=== PATIENT | female | born 1985 | race Caucasian/White ===

== ENCOUNTER 2017-04-18 05:58 | Emergency (ER) | payer OTHER ==
[2017-04-18] MEDS ORDERED: Metoclopramide IV* 5 MG/ML 2 ML VIAL IV ONE (06:27)
[2017-04-18] MEDS ORDERED: NS 0.9% 1000 ML* 1,000 ML IV ONE (06:27)
--- NOTE | 2017-04-18 06:46 | ED ---
Jovany Vicente Benjamin, scribed for Thai West MD on 04/18/17 at 0628 . Abdominal Pain/Female - HPI Summary HPI Summary: 31yo female BIBA for abdominal pain, nausea, and vomiting. Pt started vomiting for 3 days, which pt took 6 zofrans since onset of nausea and vomiting. Pt also has diffuse abdominal pain that has been worsening. Also reports CP. Pts last PCP visit was 04/02. Pt reports having similar symptoms months ago. - History of Current Complaint Chief Complaint: EDNauseaVomitDiarrh Stated Complaint: NAUSEA/VOMITING Time Seen by Provider: 04/18/17 06:18 Hx Obtained From: Patient Hx Last Menstrual Period: 2 months ago Onset/Duration: Sudden Onset, Lasting Days - 3 days, Still Present Timing: Intermittent Episode Lasting Severity Initially: Mild Severity Currently: Severe Pain Intensity: 10 Pain Scale Used: 0-10 Numeric Location: Diffuse Radiates: No Aggravating Factor(s): Nothing Alleviating Factor(s): Nothing Associated Signs and Symptoms: Positive: Chest Pain, Nausea, Vomiting Allergies/Adverse Reactions: Allergies Allergy/AdvReac Type Severity Reaction Status Date / Time Shellfish Allergy Allergy Intermediate Swelling Verified 10/08/16 10:06 Of Face,Lips,& Throat Latex Allergy Mild Rash Verified 10/08/16 10:06 PMH/Surg Hx/FS Hx/Imm Hx Endocrine/Hematology History: Reports: Hx Thyroid Disease - She is not on medications for this because she does not like the feel. Denies: Hx Anticoagulant Therapy, Hx Blood Disorders, Hx Diabetes Cardiovascular History: Denies: Hx Congestive Heart Failure, Hx Deep Vein Thrombosis, Hx Hypertension , Hx Myocardial Infarction, Hx Pacemaker/ICD Respiratory History: Reports: Hx Asthma, Other Respiratory Problems/Disorders - Hx LT LUNG COLLAPSE/FLUID Denies: Hx Chronic Obstructive Pulmonary Disease (COPD), Hx Lung Cancer, Hx Pneumonia, Hx Pulmonary Embolism GI History: Reports: Hx Crohn's Disease, Hx Gastroesophageal Reflux Disease, Other GI Disorders - GERD Denies: Hx Gall Bladder Disease, Hx Gastrointestinal Bleed, Hx Ulcer, Hx Urosepsis History: Reports: Hx Kidney Stones, Hx Renal Disease - STONES Musculoskeletal History: Reports: Other Musculoskeletal History - CHRONIC BACK PAIN,SCOLOSIS BORN W/L3-S1 FUSION Sensory History: Reports: Hx Contacts or Glasses Denies: Hx Hearing Aid Opthamlomology History: Reports: Hx Contacts or Glasses Neurological History: Reports: Hx Headaches, Hx Migraine Denies: Hx Dementia, Hx Seizures, Hx Transient Ischemic Attacks (TIA) Psychiatric History: Reports: Hx Anxiety, 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 extra congenital breast removed. removal of cervical cancer 6 year. lumbar fusion (FOR SCOLIOSIS). collapsed lung 2013 Hx Anesthesia Reactions: No Infectious Disease History: Yes Infectious Disease History: Reports: Hx Hepatitis, Hx of Known/Suspected MRSA Denies: Hx Clostridium Difficile, Hx Human Immunodeficiency Virus (HIV), Hx Shingles, Hx Tuberculosis, Traveled Outside the [place] in Last 30 Days - Family History Known Family History: Positive: None, Diabetes, Other - She grew up in foster care--has limited information regarding her fmhx Negative: Cardiac Disease, Hypertension - Social History Occupation: Unemployed Lives: Alone Alcohol Use: None Alcohol Amount: sober since 01/19/14 Hx Substance Use: No Substance Use Type: Reports: None Substance Use Comment - Amount & Last Used: not since october Hx Tobacco Use: Yes Smoking Status (MU): Current Every Day Smoker Type: Cigarettes Amount Used/How Often: 1/2 PPD Length of Time of Smoking/Using Tobacco: 15 years Have You Smoked in the Last Year: Yes Review of Systems Constitutional: Negative Eyes: Negative ENT: Negative Positive: Chest Pain Respiratory: Negative Positive: Abdominal Pain, Vomiting, Nausea. Negative: Diarrhea Genitourinary: Negative Musculoskeletal: Negative Skin: Negative Neurological: Negative Psychological: Normal All Other Systems Reviewed And Are Negative: Yes Physical Exam Triage Information Reviewed: Yes Vital Signs On Initial Exam: Initial Vitals Temp Pulse Resp BP Pulse Ox 98.6 F 59 20 138/79 98 04/18/17 06:02 04/18/17 06:02 04/18/17 06:02 04/18/17 06:02 04/18/17 06:02 Vital Signs Reviewed: Yes Appearance: Positive: Well-Appearing, Pain Distress - mild discomfort Skin: Positive: Warm Head/Face: Positive: Normal Head/Face Inspection Eyes: Positive: [place] ENT: Positive: Hearing grossly normal Neck: Positive: Supple Respiratory/Lung Sounds: Positive: Breath Sounds Present Cardiovascular: Positive: Normal Abdomen Description: Positive: Soft, Other: - mild diffuse abd tenderness. Negative: Distended, Guarding Bowel Sounds: Positive: Present Musculoskeletal: Positive: Strength/ROM Intact Neurological: Positive: Alert, Oriented to Person Place, Time Psychiatric: Positive: Affect/Mood Appropriate - [place] Coma Scale Coma Scale Total: 15 Diagnostics - Vital Signs Vital Signs Temp Pulse Resp BP Pulse Ox 04/18/17 06:02 98.6 F 59 20 138/79 98 - Laboratory Result Diagrams: 04/18/17 08:37 04/18/17 08:37 Lab Statement: Any lab studies that have been ordered have been reviewed, and results considered in the medical decision making process. Abdominal Pain Fem Course/Dx - Diagnoses Provider Diagnoses: Cyclic vomiting syndrome Discharge - Discharge Plan Condition: Stable Disposition: HOME Prescriptions: Metoclopramide TAB* [Reglan TAB*] 10 mg PO Q8H PRN #10 tab PRN Reason: Vomiting Patient Education Materials: Acute Nausea and Vomiting (ED) Referrals: Ernst Morton MD [Primary Care Provider] - 3 Days The documentation as recorded by the Jovany dumont Benjamin accurately reflects the service I personally performed and the decisions made by , Thai West MD.
[2017-04-18] MEDS ORDERED: Ketorolac INJ* 30 MG/ML 1 ML VIAL IV PUSH ONE (08:13)
[2017-04-18 08:47] LABS: Hematocrit 49 % (35-47); Hemoglobin 16.7 g/dl (12.0-16.0); Mean Corpuscular HGB Conc 34 g/dl (31-36); Mean Corpuscular Hemoglobin 31 pg (27-31); Mean Corpuscular Volume 91 fL (80-97); Red Cell Distribution Width 14 % (10.5-15); White Blood Count 10.7 10^3/ul (3.5-10.8)
[2017-04-18 08:50] LABS: Comments Flag Yes
[2017-04-18 08:51] LABS: Add Diff/Slide Review? Slide Review Added
[2017-04-18 09:19] LABS: Mean Platelet Volume 9 um3 (7.4-10.4)
[2017-04-18 09:46] LABS: ALT 26 U/L (7-52); AST 22 U/L (13-39); Alkaline Phosphatase 102 U/L (34-104); Anion Gap 15 mmol/L (2-11); BUN/Creatinine Ratio 43.3 (8-20); Blood Urea Nitrogen 29 mg/dL (6-24); C Reactive Protein 3.25 mg/L (< 5.00); CO2 Carbon Dioxide 21 mmol/L (22-32); Calcium 9.7 mg/dL (8.6-10.3); Chloride 97 mmol/L (101-111); EGFR African American 132.9 (>60); EGFR Non-African American 103.3 (>60); Globulin 3.9 g/dL (2-4); Glucose 104 mg/dL (70-100); Lipase 10 U/L (11.0-82.0); Magnesium 2.3 mg/dL (1.9-2.7); Potassium 4.2 mmol/L (3.5-5.0); Sodium 133 mmol/L (133-145); Total Protein 8.9 g/dL (6.4-8.9)
[2017-04-18 11:17] VITALS: BP 128/72
--- NOTE | 2017-04-18 18:25 | ED ---
Tish Vicente Rebecca, scribed for Abhi Rice MD on 04/18/17 at 0825 . Progress - Progress Note Progress Note: Patient was signed out from Dr. West. Pt reports the abdominal pain began on Friday. Has not seen a GI recently. PCP is Dr. Morton and patient states he has not referred her to a GI. Takes suboxone which she reports typically does not bother her until these bouts of N/V. Reports that recently she has been smoking marijuana 5-6x per day. PE Findings: VITAL SIGNS: Reviewed. GENERAL: Patient is a well-developed and nourished female who is lying comfortable in the stretcher. ~Patient is not in any acute respiratory distress. HEAD AND FACE: Normocephalic and atraumatic. EYES: PERRLA, EOMI x 2, No injected conjunctiva. EARS: Hearing grossly intact. Ear canals and tympanic membranes are WNL. MOUTH: Oropharynx within normal limits. NECK: Supple, trachea is midline, no adenopathy, no JVD. CHEST: Symmetric, no tenderness at palpation LUNGS: Clear to auscultation bilaterally. No wheezing or crackles. CVS: RRR, S1 and S2 present, no murmurs or gallops appreciated. ABDOMEN: Soft, non-tender. No signs of distention. Positive bowel sounds. No rebound no guarding, and no masses palpated. No abdominal bruit or pulsations. EXTREMITIES: FROM in all major joints, no edema, no cyanosis or clubbing. NEURO: Alert and oriented x 3. No acute neurological deficits. Speech is normal. SKIN: Dry and warm Re-Evaluation - Re-Evaluation First Eval Re-Evaluation Time: 09:41 Change: Improved Comment: Discussed blood results with patient and the possibility that marijuana may be causing her GI complaints. Discussed how she could slowly wean herself off which she understands. Reports that her nausea is improved. Course/Dx - Course Course Of Treatment: Signed out from Dr. West. Test results WNL except for increase in Hgb and Hct, CO2 is 21, anion gap is 15 and BUN is 29. In the ED course, the patient was given 1 liter of fluid, Reglan for vomiting and Toradol for pain. After medications were given, the sx improved. Examination of abdomen is soft, non-tender with positive bowel sounds. Therefore, no need to do a CT or XR of the abdomen. I believe that her sx are secondary to cyclic vomiting syndrome seeing as the patient smokes marijuana 5-6x during the day. The patient is tolerating PO, therefore she will be D/C to home to follow up with Dr. Morton. - Diagnoses Provider Diagnoses: Cyclic vomiting syndrome The documentation as recorded by the Tish dumont Rebecca accurately reflects the service I personally performed and the decisions made by me, Abhi Rice MD.
== END 2017-04-18 11:00 | disposition home or self-care (01) ==
LOC: ED 05:58
DX: G43.A0 Cyclical vomiting, in migraine, not intractable (principal)
CPT/HCPCS: 36415; 80053; 83690; 83735; 84702; 85025; 86140; 99283; J1885

== ENCOUNTER 2017-05-05 13:13 | Emergency (ER) | payer OTHER ==
[2017-05-05 13:29] VITALS: BP 90/64
--- NOTE | 2017-05-05 14:31 | UC ---
General HPI - HPI Summary HPI Summary: The patient comes in today for: 1. Neck pain, right ear numbness, tailbone hurts. Onset: 2 days ago for the neck and tail bone. Also, the right ear numbness is present over the last 2 days. Palliative/provocative: Not moving helps. Quality: Ache Region: Neck, and tailbone. Severity: 8/10 for the neck and tailbone. Time: Constant. Associated symptoms: Injury: "When I was , I broke my tail bone." She states that she tripped 2 days ago and she fell down on the bedroom floor. However, her story is not consistent and when questioned, she is not able to give exact information on what happened. Previous treatment: None. * - History of Current Complaint Chief Complaint: UCBackPain Stated Complaint: NECK AND TAIL BONE INJURY Time Seen by Provider: 05/05/17 14:25 Hx Obtained From: Patient - Allergy/Home Medications Allergies/Adverse Reactions: Allergies Allergy/AdvReac Type Severity Reaction Status Date / Time Shellfish Allergy Allergy Intermediate Swelling Verified 05/05/17 13:29 Of Face,Lips,& Throat Latex Allergy Mild Rash Verified 05/05/17 13:29 Home Medications: Home Medications Baclofen TAB* [Lioresal TAB*] 20 mg PO DAILY 05/05/17 [History Confirmed ] Buprenorphine/Naloxone SL TAB* [Suboxone 8-2 mg SL TAB*] 32 mg PO DAILY [History Confirmed 05/05/17] Cyclobenzaprine TAB* [Flexeril 10 MG TAB*] 10 mg PO DAILY 05/05/17 [History Confirmed 05/05/17] Esomeprazole Magnesium [Nexium] 40 mg PO DAILY 05/05/17 [History Confirmed 05/05] Mometasone NASAL (NF) [Nasonex (NF)] 1 spray BOTH NARES DAILY 05/05/17 [History Confirmed 05/05/17] PMH/Surg Hx/FS Hx/Imm Hx Other History Of: Hepatitis C Negative For: HIV, Hepatitis B, Anticoagulant Therapy - Surgical History Surgical History: Yes Surgery Procedure, Year, and Place: tubal ligation. extra congenital breast removed. removal of cervical cancer 6 year. lumbar fusion (FOR SCOLIOSIS). collapsed lung 2013 - Family History Known Family History: Positive: None, Diabetes, Other - She grew up in foster care--has limited information regarding her fmhx Negative: Cardiac Disease, Hypertension - Social History Alcohol Use: None Alcohol Amount: sober since 01/19/14 Substance Use Type: None, Heroin, Marijuana Substance Use Comment - Amount & Last Used: Hx of heriod. Last use 10/18/16 Smoking Status (MU): Current Every Day Smoker Type: Cigarettes Amount Used/How Often: 1/2 PPD Length of Time of Smoking/Using Tobacco: 15 years Have You Smoked in the Last Year: Yes Household Exposure Type: Cigarettes - Immunization History Most Recent Influenza Vaccination: unknown Most Recent Tetanus Shot: unkown Most Recent Pneumonia Vaccination: unknown Review of Systems All Other Systems Reviewed And Are Negative: Yes Physical Exam Triage Information Reviewed: Yes Appearance: Well-Appearing, No Pain Distress - When I walked in, she was sitting comfortably. However, when asked to get on and off the exam table, she was slower., Well-Nourished Vital Signs: Initial Vital Signs Temp 98.6 F 05/05/17 13:24 Pulse 103 05/05/17 13:24 Resp 16 05/05/17 13:24 BP 90/64 05/05/17 13:24 Pulse Ox 100 05/05/17 13:24 Vital Signs Reviewed: Yes Eyes: Positive: Conjunctiva Clear. Negative: Discharge ENT: Positive: Hearing grossly normal. Negative: Pharyngeal erythema, Nasal drainage, TM bulging, TM dull, TM red, Tonsillar swelling, Tonsillar exudate Dental: Negative: Gross Decay/Caries @, Dental Fracture @ Neck: Positive: No Lymphadenopathy, Other: - She holds her head steady in one position looking forward. She is not able to extend it or move it forward easily. Tilting her head to the right or left is not tolerated. NO masses. Respiratory: Positive: Chest non-tender, Lungs clear, No respiratory distress, No accessory muscle use. Negative: Crackles, Wheezing Cardiovascular: Positive: RRR, No Murmur Abdomen Description: Positive: No Organomegaly, Soft. Negative: Nontender - She states that she has some abdominal pain, but it is not any different from her usual chronic abdominal pain she is seeing someone before for this., Distended, Guarding Musculoskeletal: Positive: Strength Intact, ROM Intact, No Edema Neurological: Positive: Alert, Other: - She states that she has numbness of the area of her right face below the zygomatic arch but above the mandible. She has numbness from the front of her ear to the anterior cheek. Neurologic screen: negative Psychological: Positive: Age Appropriate Behavior, Consolable Skin: Negative: rashes, breakdown Diagnostics - Radiology No standard instances Xray Interpretation: No Acute Changes - CT spine of the cervical spine: IMPRESSION: STRAIGHTENING THE CERVICAL LORDOSIS. MILD DEGENERATIVE DISC DISEASE. NO ACUTE OSSEOUS INJURY TO THE CERVICAL SPINE Coccyx.IMPRESSION: NO ACUTE OSSEOUS INJURY OF THE SACRUM AND COCCYX. PLAIN FILMS ARE RELATIVELY INSENSITIVE TO NONDISPLACED FRACTURES OF THE SACRUM AND COCCYX. IF THERE IS PERSISTENT CLINICAL CONCERN FOR SACROCOCCYGEAL OSSEOUS PATHOLOGY, BONE SCANNING MAY BE MORE SENSITIVE Course/Dx - Course Course Of Treatment: Patient was told of the reports for the x-rays. She was satisifed. She was told that she can be given an anti-inflammatory medication. She was also told that I could not explain the cause of her numbness of her face and told her that the worse that it could be is a small stroke and that my recommendation would be to go to the ER for further evaluation, but she declined. - Differential Dx - Multi-Symptom Provider Diagnoses: Coccydynia. neck pain/strain. facial numbness Discharge - Discharge Plan Condition: Stable Disposition: HOME Patient Education Materials: Cervical Strain (ED), Coccyx Injury (ED), Paresthesia (ED) Referrals: Ernst Morton MD [Primary Care Provider] - As Soon As Possible (If you are not going to the ER for evaluation of your facial numbness, please reconsider if you get worse. Please see your primary care provider as soon as you can for this and to see how well you are doing with your neck and coccyx pain.)
[2017-05-05] MEDS ORDERED: Ketorolac INJ* 60 MG/2 ML VIAL IM ONE (14:43)
--- NOTE | 2017-05-05 15:09 | RAD ---
HISTORY: Pain after fall COMPARISONS: None TECHNIQUE: Multiple contiguous axial CT scans were obtained of the cervical spine without intravenous contrast, with coronal and sagittal multiplanar reformations. FINDINGS: BRAIN: The visualized brain is unremarkable CENTRAL CANAL: Evaluation of the central canal is limited on CT technique; however, there is no obvious canalicular mass or epidural hemorrhage. ALIGNMENT: There is straightening of the cervical lordosis. VERTEBRAL BODIES: The odontoid process is intact. The atlantoaxial intervals are symmetric. The vertebral bodies are normal in attenuation, without fracture. There is mild anterolateral marginal osteophyte formation JOINTS: There is no subluxation or dislocation MUSCULATURE: Unremarkable INTERVERTEBRAL DISCS: There is mild diffuse loss of intervertebral disc height. AXIAL IMAGES: C2-C3: There is no osseous neural foraminal narrowing or central canal stenosis. C3-C4: There is no osseous neural foraminal narrowing or central canal stenosis. C4-C5: There is no osseous neural foraminal narrowing or central canal stenosis. C5-C6: There is no osseous neural foraminal narrowing or central canal stenosis. C6-C7: There is no osseous neural foraminal narrowing or central canal stenosis. C7-T1: There is no osseous neural foraminal narrowing or central canal stenosis. SOFT TISSUES: The visualized soft tissues of the neck are unremarkable. The prevertebral fat stripe is preserved. OTHER: None. IMPRESSION: STRAIGHTENING THE CERVICAL LORDOSIS. MILD DEGENERATIVE DISC DISEASE. NO ACUTE OSSEOUS INJURY TO THE CERVICAL SPINE
--- NOTE | 2017-05-05 15:44 | RAD ---
HISTORY: Sacrum pain after fall COMPARISONS: None VIEWS: 3, frontal, oblique, and lateral views of the sacrum and coccyx FINDINGS: BONE DENSITY: Normal. BONES: There is no displaced fracture. There is partial sacralization of the L5 vertebral body. The sacral arches are intact. JOINTS: There is no arthropathy. ALIGNMENT: There is no dislocation. SOFT TISSUES: Unremarkable. OTHER FINDINGS: None. IMPRESSION: NO ACUTE OSSEOUS INJURY OF THE SACRUM AND COCCYX. PLAIN FILMS ARE RELATIVELY INSENSITIVE TO NONDISPLACED FRACTURES OF THE SACRUM AND COCCYX. IF THERE IS PERSISTENT CLINICAL CONCERN FOR SACROCOCCYGEAL OSSEOUS PATHOLOGY, BONE SCANNING MAY BE MORE SENSITIVE
== END 2017-05-05 16:19 | disposition home or self-care (01) ==
LOC: UCEAST 13:13
DX: Z72.0 Tobacco use (principal); M53.3 Sacrococcygeal disorders, not elsewhere classified; S16.1XXA Strain of muscle, fascia and tendon at neck level, initial encounter; W10.9XXA Fall (on) (from) unspecified stairs and steps, initial encounter; Y93.9 Activity, unspecified; Y92.9 Unspecified place or not applicable; Y99.9 Unspecified external cause status; M54.2 Cervicalgia; R20.0 Anesthesia of skin
CPT/HCPCS: 72125; 72220; 99212; G0463; J1885

== ENCOUNTER → 2017-05-07 12:59 | Emergency (ER) | payer OTHER ==
[~2017-05-07 12:59] MED LIST: Ketorolac INJ* 60 MG/2 ML VIAL IM ONE
--- NOTE | 2017-05-07 15:08 | RAD ---
HISTORY: Right-sided facial numbness, fall COMPARISONS: May 29, 2014 TECHNIQUE: Multiple contiguous axial CT scans were obtained of the head without intravenous contrast. FINDINGS: HEMORRHAGE/INFARCT: There is no hemorrhage or acute infarct. MASSES/SHIFT: There is no mass or shift. EXTRA-AXIAL SPACES: There are no extra-axial fluid collections. SULCI AND VENTRICLES: The sulci and ventricles are normal in size and position for the patient's stated age. CEREBRUM: There are no focal parenchymal abnormalities. BRAINSTEM: There are no focal parenchymal abnormalities. CEREBELLUM: There are no focal parenchymal abnormalities. VESSELS: The vessels are grossly normal. PARANASAL SINUSES: The paranasal sinuses are clear. ORBITS: The orbits are unremarkable. BONES AND SOFT TISSUE: No bone or soft tissue abnormalities are noted. OTHER: None IMPRESSION: NO ACUTE INTRACRANIAL PATHOLOGY.
--- NOTE | 2017-05-07 15:26 | RAD ---
HISTORY: Right-sided facial numbness, fall, neck numbness COMPARISONS: May 05, 2017 TECHNIQUE: Multiple contiguous axial CT scans were obtained of the cervical spine without intravenous contrast, with coronal and sagittal multiplanar reformations. FINDINGS: BRAIN: The visualized brain is unremarkable CENTRAL CANAL: Evaluation of the central canal is limited on CT technique; however, there is no obvious canalicular mass or epidural hemorrhage. ALIGNMENT: There is straightening of the cervical lordosis. VERTEBRAL BODIES: The odontoid process is intact. The atlantoaxial intervals are symmetric. The vertebral bodies are normal in attenuation, without fracture. Again noted is mild anterolateral marginal osteophyte formation. JOINTS: There is no subluxation or dislocation. MUSCULATURE: Unremarkable INTERVERTEBRAL DISCS: There is mild diffuse loss of intervertebral disc height. AXIAL IMAGES: C2-C3: There is no osseous neural foraminal narrowing or central canal stenosis. C3-C4: There is no osseous neural foraminal narrowing or central canal stenosis. C4-C5: There is no osseous neural foraminal narrowing or central canal stenosis. C5-C6: There is no osseous neural foraminal narrowing or central canal stenosis. C6-C7: There is no osseous neural foraminal narrowing or central canal stenosis. C7-T1: There is no osseous neural foraminal narrowing or central canal stenosis. SOFT TISSUES: The visualized soft tissues of the neck are unremarkable. The prevertebral fat stripe is preserved. OTHER: None. IMPRESSION: 1. STABLE MILD DEGENERATIVE CHANGES. 2. NO ACUTE OSSEOUS INJURY TO THE CERVICAL SPINE. 3. STRAIGHTENING OF THE CERVICAL LORDOSIS. 4. NO SIGNIFICANT CHANGE FROM MAY 05, 2017
--- NOTE | 2017-05-07 16:24 | ED ---
Neurological HPI - HPI Summary HPI Summary: Patient presents to ED s/p fall 3 days ago. She does not recall getting up from fall, but she remembered later that she fell. - History of Current Complaint Chief Complaint: EDNeurologicalDeficit Stated Complaint: FACIAL NUMBNESS Time Seen by Provider: 05/07/17 13:51 Hx Last Menstrual Period: 05/04/17 Pain Intensity: 7 - Allergy/Home Medications Allergies/Adverse Reactions: Allergies Allergy/AdvReac Type Severity Reaction Status Date / Time Shellfish Allergy Allergy Intermediate Swelling Verified 05/05/17 13:29 Of Face,Lips,& Throat Latex Allergy Mild Rash Verified 05/05/17 13:29 PMH/Surg Hx/FS Hx/Imm Hx Endocrine/Hematology History: Reports: Hx Thyroid Disease - She is not on medications for this because she does not like the feel. Denies: Hx Anticoagulant Therapy, Hx Blood Disorders, Hx Diabetes Cardiovascular History: Denies: Hx Congestive Heart Failure, Hx Deep Vein Thrombosis, Hx Hypertension , Hx Myocardial Infarction, Hx Pacemaker/ICD Respiratory History: Reports: Hx Asthma, Other Respiratory Problems/Disorders - Hx LT LUNG COLLAPSE/FLUID Denies: Hx Chronic Obstructive Pulmonary Disease (COPD), Hx Lung Cancer, Hx Pneumonia, Hx Pulmonary Embolism GI History: Reports: Hx Crohn's Disease, Hx Gastroesophageal Reflux Disease, Other GI Disorders - GERD Denies: Hx Gall Bladder Disease, Hx Gastrointestinal Bleed, Hx Ulcer, Hx Urosepsis History: Reports: Hx Kidney Stones, Hx Renal Disease - STONES Musculoskeletal History: Reports: Other Musculoskeletal History - CHRONIC BACK PAIN,SCOLOSIS BORN W/L3-S1 FUSION Sensory History: Reports: Hx Contacts or Glasses Denies: Hx Hearing Aid Opthamlomology History: Reports: Hx Contacts or Glasses Neurological History: Reports: Hx Headaches, Hx Migraine Denies: Hx Dementia, Hx Seizures, Hx Transient Ischemic Attacks (TIA) Psychiatric History: Reports: Hx Anxiety, 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 extra congenital breast removed. removal of cervical cancer 6 year. lumbar fusion (FOR SCOLIOSIS). collapsed lung 2014 Hx Anesthesia Reactions: No Infectious Disease History: Yes Infectious Disease History: Reports: Hx Hepatitis, Hx of Known/Suspected MRSA Denies: Hx Clostridium Difficile, Hx Human Immunodeficiency Virus (HIV), Hx Shingles, Hx Tuberculosis, Traveled Outside the [place] in Last 30 Days - Family History Known Family History: Positive: None, Diabetes, Other - She grew up in foster care--has limited information regarding her fmhx Negative: Cardiac Disease, Hypertension - Social History Alcohol Use: None Alcohol Amount: sober since 01/19/14 Hx Substance Use: No Substance Use Type: Reports: None, Heroin, Marijuana Substance Use Comment - Amount & Last Used: Hx of heriod. Last use 10/18/16 Hx Tobacco Use: Yes Smoking Status (MU): Current Every Day Smoker Type: Cigarettes Amount Used/How Often: 1/2 PPD Length of Time of Smoking/Using Tobacco: 15 years Have You Smoked in the Last Year: Yes Physical Exam Vital Signs On Initial Exam: Initial Vitals Temp Pulse Resp BP Pulse Ox 99.3 F 93 16 125/79 100 05/07/17 13:35 05/07/17 13:35 05/07/17 13:35 05/07/17 13:35 05/07/17 13:35 Diagnostics - Vital Signs Vital Signs Temp Pulse Resp BP Pulse Ox 05/07/17 13:35 99.3 F 93 16 125/79 100 - Laboratory Lab Statement: Any lab studies that have been ordered have been reviewed, and results considered in the medical decision making process. Discharge - Discharge Plan Condition: Stable Disposition: HOME Prescriptions: Ketorolac TAB * [Toradol TAB *] 10 mg PO Q6H #16 tab Patient Education Materials: Cervical Strain (ED) Referrals: Ernst Morton MD [Primary Care Provider] - Additional Instructions: I would advise against the cervical collar starting this evening to prevent stiffness I have given you a prescription for toradol. Continue to take the flexeril Follow up with Dr. Morton's office this week if possible
[2017-05-07 16:25] VITALS: BP 98/58
== END | disposition home or self-care (01) ==
LOC: ED 12:59
DX: R20.0 Anesthesia of skin (principal); W19.XXXA Unspecified fall, initial encounter; E07.9 Disorder of thyroid, unspecified; K21.9 Gastro-esophageal reflux disease without esophagitis; M54.9 Dorsalgia, unspecified; G89.29 Other chronic pain; F17.210 Nicotine dependence, cigarettes, uncomplicated; M41.9 Scoliosis, unspecified
CPT/HCPCS: 70450; 72125; J1885

== ENCOUNTER 2017-07-24 13:52 | Emergency (ER) | payer OTHER ==
[2017-07-24 15:02] LABS: Hematocrit 42 % (35-47); Hemoglobin 15.1 g/dl (12.0-16.0); Mean Corpuscular HGB Conc 36 g/dl (31-36); Mean Corpuscular Hemoglobin 32 pg (27-31); Mean Corpuscular Volume 91 fL (80-97); Mean Platelet Volume 8 um3 (7.4-10.4); Red Blood Count 4.68 10^6/ul (4.0-5.4); Red Cell Distribution Width 14 % (10.5-15); White Blood Count 10.6 10^3/ul (3.5-10.8)
[2017-07-24 15:12] LABS: Comments Flag Yes
[2017-07-24 15:33] LABS: ALT 26 U/L (7-52); AST 18 U/L (13-39); Albumin 4.5 g/dL (3.2-5.2); Alkaline Phosphatase 79 U/L (34-104); Anion Gap 4 mmol/L (2-11); BUN/Creatinine Ratio 11.8 (8-20); Blood Urea Nitrogen 9 mg/dL (6-24); CO2 Carbon Dioxide 27 mmol/L (22-32); Calcium 9.3 mg/dL (8.6-10.3); Chloride 103 mmol/L (101-111); EGFR African American 114.9 (>60); EGFR Non-African American 89.4 (>60); Globulin 3.8 g/dL (2-4); Glucose 76 mg/dL (70-100); Potassium 3.7 mmol/L (3.5-5.0); Sodium 134 mmol/L (133-145); Total Protein 8.3 g/dL (6.4-8.9)
[2017-07-24] MEDS ORDERED: Iohexol 300* (CONTRAST) 10 ML SDV IV ONE (16:00)
[2017-07-24] MEDS ORDERED: HYDROmorphone INJ* 2 MG/ML CARPUJECT SYRINGE IV SLOW PU ONE (16:08)
[2017-07-24] MEDS ORDERED: Ketorolac INJ* 30 MG/ML 1 ML VIAL IV PUSH ONE (18:33)
--- NOTE | 2017-07-24 18:58 | RAD ---
CLINICAL HISTORY: Painful swelling overlying the coccyx COMPARISON: Most recent comparison CT examination is dated June 29, 2013 TECHNIQUE: Contrast enhanced CT examination of the abdomen and pelvis from the lung bases through the initial tuberosities. The patient received 88 mL Omnipaque 300 intravenously prior to imaging.The patient received oral contrast as well prior to imaging. FINDINGS: VISUALIZED LUNG BASES: The visualized lung bases are grossly clear. There is no pleural effusion. ABDOMEN AND PELVIS: The liver, spleen, pancreas and adrenal glands are grossly normal in appearance. The gallbladder is normal. There is a stable nonobstructing 6 mm calcification at the left kidney. Otherwise the kidneys are normal in appearance without focal mass or signs of hydronephrosis. Evaluation of the gastrointestinal tract is limited without oral contrast. The small and large bowel are not distended. There is no gross retroperitoneal or mesenteric lymphadenopathy. The pelvic viscera is normal in appearance. The abdominal aorta and iliac arteries are normal in course and diameter. Since the most recent CT examination there has been interval appearance of mild compression deformity of the T11 vertebral body with irregularity of the superior endplate. There is no retropulsion of fragments.There are no sinister bone lesions. Careful scrutiny of the subcutaneous tissue overlying the coccyx shows very mild infiltration of the subcutaneous fat but no drainable fluid collection or other gross abnormality. IMPRESSION: 1. Mild infiltration of the subcutaneous fat overlying the coccyx without drainable fluid collection or other gross abnormality. 2. Since the CT dated June 29, 2013 there has been interval appearance of compression deformity and superior endplate irregularity of the T11 vertebral body. There is no retropulsion of fragments. Please correlate to pain at this level. 3. Additional chronic and degenerative changes described in the body the report.
[2017-07-24] MEDS ORDERED: Metoclopramide IV* 5 MG/ML 2 ML VIAL IV SLOW PU ONE (19:09)
[2017-07-24] MEDS ORDERED: Amoxicillin/Clavulanate TAB* 875 MG PO ONE (19:12)
[2017-07-24] MEDS ORDERED: oxyCODONE/Acetamin 5/325 MG* TAB PO ONE ×2 (19:40→20:52)
[2017-07-24 19:59] LABS: C Reactive Protein 3.15 mg/L (< 5.00)
[2017-07-24 20:57] LABS: Urine Bacteria Absent (Absent); Urine Bilirubin Negative (Negative); Urine Glucose Negative (Negative); Urine Nitrite Positive (Negative)
[2017-07-24 21:29] VITALS: BP 110/68
[2017-07-24 21:57] LABS: Erythrocyte Sed Rate 14 mm/Hr (0-14)
--- NOTE | 2017-07-26 09:02 | PN ---
Progress Note - Progress Note Date of Service: 07/24/17 Note: patient seen and diagnosed with coxalgia pain. urine preliminary results show 10-25,000 of e. coli growth. no complaints or urine dip signs of UTI. not significant amount of growth for treatment. no further action needed at this time.
--- NOTE | 2017-08-01 15:10 | ED ---
Camila Vicente Alfonso, scribed for Mohit Vega MD on 07/24/17 at 1449 . Complex/Multi-Sys Presentation - HPI Summary HPI Summary: This patient is a 31 year old F presenting to [facility] with a chief complaint of low back pain since this morning. She states I have a lump 4 inches inside at my tail bone. The patient rates the pain 7/10 in severity. Symptoms aggravated by touch, ambulation, and position. Symptoms alleviated by nothing. Patient reports headache, diaphoresis, chills, and dysuria (currently on abx after a UTI diagnosis). Patient denies fever, and hematuria. She denies recent trauma. - History Of Current Complaint Chief Complaint: EDGeneral Time Seen by Provider: 07/24/17 14:42 Hx Obtained From: Patient Onset/Duration: Sudden Onset, Lasting Hours, Still Present Timing: Constant Severity Initially: Moderate Aggravating Factor(s): touch, ambulation, and position Alleviating Factor(s): nothing Associated Signs And Symptoms: Positive: Other - headache, diaphoresis, chills, and dysuria (currently on abx after a UTI diagnosis). Patient denies fever, and hematuria. She denies recent trauma. - Allergies/Home Medications Allergies/Adverse Reactions: Allergies Allergy/AdvReac Type Severity Reaction Status Date / Time Shellfish Allergy Allergy Intermediate Swelling Verified 07/24/17 14:04 Of Face,Lips,& Throat Latex Allergy Mild Rash Verified 07/24/17 14:04 PMH/Surg Hx/FS Hx/Imm Hx Endocrine/Hematology History: Reports: Hx Thyroid Disease - She is not on medications for this because she does not like the feel. Denies: Hx Anticoagulant Therapy, Hx Blood Disorders, Hx Diabetes Cardiovascular History: Denies: Hx Congestive Heart Failure, Hx Deep Vein Thrombosis, Hx Hypertension , Hx Myocardial Infarction, Hx Pacemaker/ICD Respiratory History: Reports: Hx Asthma, Other Respiratory Problems/Disorders - Hx LT LUNG COLLAPSE/FLUID Denies: Hx Chronic Obstructive Pulmonary Disease (COPD), Hx Lung Cancer, Hx Pneumonia, Hx Pulmonary Embolism GI History: Reports: Hx Crohn's Disease, Hx Gastroesophageal Reflux Disease, Other GI Disorders - GERD Denies: Hx Gall Bladder Disease, Hx Gastrointestinal Bleed, Hx Ulcer, Hx Urosepsis History: Reports: Hx Kidney Stones, Hx Renal Disease - STONES Musculoskeletal History: Reports: Other Musculoskeletal History - CHRONIC BACK PAIN,SCOLOSIS BORN W/L3-S1 FUSION Sensory History: Reports: Hx Contacts or Glasses Denies: Hx Hearing Aid Opthamlomology History: Reports: Hx Contacts or Glasses Neurological History: Reports: Hx Headaches, Hx Migraine Denies: Hx Dementia, Hx Seizures, Hx Transient Ischemic Attacks (TIA) Psychiatric History: Reports: Hx Anxiety, 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 extra congenital breast removed. removal of cervical cancer 6 year. lumbar fusion (FOR SCOLIOSIS). collapsed lung 2013 Hx Anesthesia Reactions: No Infectious Disease History: Yes Infectious Disease History: Reports: Hx Hepatitis, Hx of Known/Suspected MRSA Denies: Hx Clostridium Difficile, Hx Human Immunodeficiency Virus (HIV), Hx Shingles, Hx Tuberculosis, Traveled Outside the [place] in Last 30 Days - Family History Known Family History: Positive: Diabetes Negative: Cardiac Disease, Hypertension - Social History Alcohol Use: None Alcohol Amount: sober since 01/19/14 Hx Substance Use: No Substance Use Type: Reports: None, Heroin, Marijuana Substance Use Comment - Amount & Last Used: Hx of heriod. Last use 10/18/16 Hx Tobacco Use: Yes Smoking Status (MU): Current Every Day Smoker Type: Cigarettes Amount Used/How Often: 1/2 PPD Length of Time of Smoking/Using Tobacco: 15 years Have You Smoked in the Last Year: Yes Review of Systems Positive: Chills, Skin Diaphoresis. Negative: Fever Negative: Erythema Negative: Sore Throat Negative: Chest Pain Negative: Shortness Of Breath, Cough Negative: Abdominal Pain, Vomiting, Nausea Positive: dysuria. Negative: hematuria Positive: Other - low back pain. Negative: Myalgia, Edema Negative: Rash Neurological: Other - Negative dizziness Positive: Headache All Other Systems Reviewed And Are Negative: Yes Physical Exam Triage Information Reviewed: Yes Vital Signs On Initial Exam: Initial Vitals Temp Pulse Resp BP Pulse Ox 98.5 F 83 16 135/86 99 07/24/17 14:04 07/24/17 14:04 07/24/17 14:04 07/24/17 14:04 07/24/17 14:04 Vital Signs Reviewed: Yes Appearance: Positive: Well-Appearing, No Pain Distress Skin: Positive: Warm, Dry Head/Face: Positive: Normal Head/Face Inspection Eyes: Positive: Conjunctiva Clear Neck: Positive: Other: - Musculoskeletal ROM normal neck. (-) JVD, (-) Stridor, (-) Tracheal deviation, (-) Cervical adenopathy Respiratory/Lung Sounds: Positive: Other - Effort normal. (-) Respiratory distress, (-) Wheezes, (-) Rales Cardiovascular: Positive: RRR, Other - Heart sounds normal; Intact distal pulses ; The pedal pulses are 2+ and symmetric. Radial pulses are 2+ and symmetric. (- ) Murmur Abdomen Description: Positive: Nontender, Soft, Other: - No rebound. Negative: Distended, Guarding Musculoskeletal: Positive: Other - Discreet 3 cm x 3cm deep indurated area to the left of midline superior medial buttock.. Negative: Edema Left, Edema Right Neurological: Positive: Alert, Oriented to Person Place, Time Psychiatric: Positive: Affect/Mood Appropriate Diagnostics - Vital Signs Vital Signs Temp Pulse Resp BP Pulse Ox 07/24/17 14:04 98.5 F 83 16 135/86 99 - Laboratory Result Diagrams: 07/24/17 14:52 07/24/17 14:52 Lab Statement: Any lab studies that have been ordered have been reviewed, and results considered in the medical decision making process. - CT A/P CT Interpretation Completed By: Radiologist - 1. Mild infiltration of the subcutaneous fat overlying the coccyx without drainable fluid collection or other gross abnormality. 2. Since the CT dated June 29, 2013 there has been interval appearance of compression deformity and superior endplate irregularity of the T11 vertebral body. There is no retropulsion of fragments. Please correlate to pain at this level. 3. Additional chronic and degenerative changes described in the body the report. ED physician has reviewed this radiology report and agrees. Complex Multi-Symp Course/Dx Assessment/Plan: This patient is a 31 year old F presenting to [facility] with a chief complaint of low back pain since this morning. She states I have a lump 4 inches inside at my tail bone. The patient rates the pain 7/10 in severity. Symptoms aggravated by touch, ambulation, and position. Symptoms alleviated by nothing. Patient reports headache, diaphoresis, chills, and dysuria (currently on abx after a UTI diagnosis). Patient denies fever, and hematuria. She denies recent trauma. CT A/P reveals 1. Mild infiltration of the subcutaneous fat overlying the coccyx without drainable fluid. collection or other gross abnormality. 2. Since the CT dated June 29, 2013 there has been interval appearance of compression. deformity and superior endplate irregularity of the T11 vertebral body. There is no. retropulsion of fragments. Please correlate to pain at this level. 3. Additional chronic and degenerative changes described in the body the report. ED physician has reviewed this radiology report and agrees. Consulted Dr. Remy (paint tinter) who recommended the patient discontinue suboxone use and have a one week course of Percocet dispensed from the ED. She recommends add on SED rate and CRP. Cannot r /o accidental trauma given history of IV drug abuse. Patient will be discharged with follow up from Dr. Morton (PCP) tomorrow. The patient is agreeable with this plan. - Diagnoses Provider Diagnoses: COXALGIA PAIN - Physician Notifications Discussed Care Of Patient With: Peg Remy Time Discussed With Above Provider: 19:34 Instructed by Provider To: Other - Consulted Dr. Remy (paint tinter) who recommended the patient discontinue suboxone use and have a one week course of Percocet dispensed from the ED. She recommends add on SED rate and CRP. Discharge - Discharge Plan Condition: Stable Disposition: HOME Patient Education Materials: Coccyx Injury (ED) Referrals: Ernst Morton MD [Primary Care Provider] - 1 Day Additional Instructions: RETURN TO THE EMERGENCY DEPARTMENT FOR CHANGING OR WORSENING SYMPTOMS. The documentation as recorded by the Camila dumont Alfonso accurately reflects the service I personally performed and the decisions made by , Mohit Vega MD.
== END 2017-07-24 21:28 | disposition home or self-care (01) ==
LOC: ED 13:52
DX: M54.5 Low back pain (principal); R51 Headache; R30.0 Dysuria; F17.210 Nicotine dependence, cigarettes, uncomplicated; M25.559 Pain in unspecified hip
CPT/HCPCS: 36415; 74177; 80053; 81003; 81015; 83605; 84702; 85025; 85610; 85652; 85730; 86140; 87040; 87086; 87088; 96374; 96375; 99283; A9270-GY; J1170; J1885; J2765; Q9967

== ENCOUNTER 2017-07-26 23:02 | Emergency (ER) | payer OTHER ==
[2017-07-26] MEDS ORDERED: Metoclopramide IV* 5 MG/ML 2 ML VIAL IV ONE (23:49)
[2017-07-26] MEDS ORDERED: Pantoprazole IV* 40 MG IV ONE (23:49)
[2017-07-26] MEDS ORDERED: NS 0.9% 1000 ML* 2,000 ML IV ONE (23:49)
[2017-07-26] MEDS ORDERED: Morphine INJ* 4 MG/ML 1 ML CARPUJECT IV ONE (23:49)
[2017-07-27 00:32] LABS: Hematocrit 43 % (35-47); Hemoglobin 14.9 g/dl (12.0-16.0); Mean Corpuscular HGB Conc 35 g/dl (31-36); Mean Corpuscular Hemoglobin 32 pg (27-31); Mean Corpuscular Volume 90 fL (80-97); Mean Platelet Volume 8 um3 (7.4-10.4); Red Blood Count 4.72 10^6/ul (4.0-5.4); Red Cell Distribution Width 14 % (10.5-15); White Blood Count 15.7 10^3/ul (3.5-10.8)
[2017-07-27 00:47] LABS: ALT 22 U/L (7-52); AST 16 U/L (13-39); Albumin 4.9 g/dL (3.2-5.2); Alkaline Phosphatase 96 U/L (34-104); Anion Gap 11 mmol/L (2-11); BUN/Creatinine Ratio 16.2 (8-20); Blood Urea Nitrogen 12 mg/dL (6-24); CO2 Carbon Dioxide 24 mmol/L (22-32); Calcium 9.8 mg/dL (8.6-10.3); Chloride 101 mmol/L (101-111); EGFR African American 118.5 (>60); EGFR Non-African American 92.1 (>60); Globulin 3.8 g/dL (2-4); Glucose 133 mg/dL (70-100); Lipase < 10 U/L (11.0-82.0); Potassium 3.3 mmol/L (3.5-5.0); Sodium 136 mmol/L (133-145); Total Protein 8.7 g/dL (6.4-8.9)
[2017-07-27] MEDS ORDERED: Ondansetron INJ* 2 MG/ML VIAL IV ONE (01:31)
[2017-07-27] MEDS ORDERED: HYDROmorphone INJ* 1 MG/ML CARPUJECT SYRINGE IV SLOW PU ONE (01:31)
[2017-07-27] MEDS ORDERED: Iohexol 300* (CONTRAST) 10 ML SDV IV ONE (03:01)
[2017-07-27] MEDS ORDERED: Potassium Chlor TAB* 20 MEQ TAB.ER PO ONE (03:40)
[2017-07-27] MEDS ORDERED: Ketorolac INJ* 30 MG/ML 1 ML VIAL IV PUSH ONE (03:51)
--- NOTE | 2017-07-27 04:00 | ED ---
Tish Vicente Rebecca, scribed for Cole Gandhi on 07/27/17 at 0019 . Complex/Multi-Sys Presentation - HPI Summary HPI Summary: Pt is a 31 y/o F BIBA who presents to ED c/o chest pain, abdominal pain and vomiting. Sx began last night and have been consistent since onset. Pain is described as "extreme" ranked 10/10. Guest reports that she has been on 32 mg Suboxone since October and she was taken off of it 3 days ago and he believes her sx are likely related to Suboxone withdrawal. Confirms that she has Suboxone at home, but it unable to tolerate it. - History Of Current Complaint Chief Complaint: EDNauseaVomitDiarrh Time Seen by Provider: 07/26/17 23:28 Hx Obtained From: Patient Onset/Duration: Lasting Days - Started last night, Still Present Severity Currently: Severe Location: Pain At: - chest and abdomen Aggravating Factor(s): Suboxone withdrawal Alleviating Factor(s): Nothing Associated Signs And Symptoms: Positive: Chest Pain, Vomiting, Abdominal Pain - Allergies/Home Medications Allergies/Adverse Reactions: Allergies Allergy/AdvReac Type Severity Reaction Status Date / Time Shellfish Allergy Allergy Intermediate Swelling Verified 07/26/17 23:29 Of Face,Lips,& Throat Latex Allergy Mild Rash Verified 07/26/17 23:29 PMH/Surg Hx/FS Hx/Imm Hx Endocrine/Hematology History: Reports: Hx Thyroid Disease - She is not on medications for this because she does not like the feel. Denies: Hx Anticoagulant Therapy, Hx Blood Disorders, Hx Diabetes Cardiovascular History: Denies: Hx Congestive Heart Failure, Hx Deep Vein Thrombosis, Hx Hypertension , Hx Myocardial Infarction, Hx Pacemaker/ICD Respiratory History: Reports: Hx Asthma, Other Respiratory Problems/Disorders - Hx LT LUNG COLLAPSE/FLUID Denies: Hx Chronic Obstructive Pulmonary Disease (COPD), Hx Lung Cancer, Hx Pneumonia, Hx Pulmonary Embolism GI History: Reports: Hx Crohn's Disease, Hx Gastroesophageal Reflux Disease, Other GI Disorders - GERD Denies: Hx Gall Bladder Disease, Hx Gastrointestinal Bleed, Hx Ulcer, Hx Urosepsis History: Reports: Hx Kidney Stones, Hx Renal Disease - STONES Musculoskeletal History: Reports: Other Musculoskeletal History - CHRONIC BACK PAIN,SCOLOSIS BORN W/L3-S1 FUSION Sensory History: Reports: Hx Contacts or Glasses Denies: Hx Hearing Aid Opthamlomology History: Reports: Hx Contacts or Glasses Neurological History: Reports: Hx Headaches, Hx Migraine Denies: Hx Dementia, Hx Seizures, Hx Transient Ischemic Attacks (TIA) Psychiatric History: Reports: Hx Anxiety, 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 extra congenital breast removed. removal of cervical cancer 6 year. lumbar fusion (FOR SCOLIOSIS). collapsed lung 2013 Hx Anesthesia Reactions: No Infectious Disease History: Reports: Hx Hepatitis, Hx of Known/Suspected MRSA Denies: Hx Clostridium Difficile, Hx Human Immunodeficiency Virus (HIV), Hx Shingles, Hx Tuberculosis, Traveled Outside the [place] in Last 30 Days - Family History Known Family History: Positive: Diabetes, Other - She grew up in foster care-- has limited information regarding her fmhx Negative: Cardiac Disease, Hypertension - Social History Alcohol Use: None Alcohol Amount: sober since 01/19/14 Hx Substance Use: No Substance Use Type: Reports: None, Heroin, Marijuana Substance Use Comment - Amount & Last Used: Hx of heriod. Last use 10/18/16 Hx Tobacco Use: Yes Smoking Status (MU): Current Every Day Smoker Type: Cigarettes Amount Used/How Often: 1/2 PPD Length of Time of Smoking/Using Tobacco: 15 years Have You Smoked in the Last Year: Yes Review of Systems Positive: Chest Pain Positive: Abdominal Pain, Vomiting All Other Systems Reviewed And Are Negative: Yes Physical Exam - Summary Physical Exam Summary: Appearance: Well appearing, no pain distress Skin: warm, reflects adequate perfusion, diaphoretic Head/face: normal Eyes: EOMI, MARIAMA ENT: normal Neck: supple, nontender Respiratory: CTA, breath sounds present Cardiovascular: regular rhythm, tachycardic, pulses symmetrical Abdomen: diffuse abdominal pain, soft Bowel: present Musculoskeletal: normal, strength/ROM intact Neuro: normal, sensory motor intact, A&Ox3 Triage Information Reviewed: Yes Vital Signs Reviewed: Yes Diagnostics - Laboratory Result Diagrams: 07/27/17 00:10 07/27/17 00:10 Lab Statement: Any lab studies that have been ordered have been reviewed, and results considered in the medical decision making process. - Radiology CXR Xray Interpretation: No Acute Changes Radiology Interpretation Completed By: ED Physician - CT CT Abd/Pel CT Interpretation: No Acute Changes - Small nonobstructing left renal stone. No evidence of acute pathology. ED physician reviewed radiology report and agrees. CT Interpretation Completed By: Radiologist - EKG 0034 Cardiac Rate: NL - 63 bpm EKG Rhythm: Sinus Rhythm EKG Interpretation: No acute changes Complex Multi-Symp Course/Dx Assessment/Plan: Pt is a 31 y/o F BIBA who presents to ED c/o chest pain, abdominal pain and vomiting. Sx began last night and have been consistent since onset. Pain is described as "extreme" ranked 10/10. Guest reports that she has been on 32 mg Suboxone since October and she was taken off of it 3 days ago and he believes her sx are likely related to Suboxone withdrawal. Confirms that she has Suboxone at home, but it unable to tolerate it. CT Abd/Pel and CXR reveal no acute findings. EKG is sinus rhythm with no acute changes. In the ED course, pt received Dilaudid, Reglan, Morphine, Zofran, Protonix, potassium chloride and fluids. Pt will be D/C to home with Dx of abdominal pain and vomiting with Rx for Zofran and Protonix and a follow up with her PCP. She understands and agrees. Patient medications reviewed this visit. - Diagnoses Provider Diagnoses: Abdominal pain, Vomiting Discharge - Discharge Plan Condition: Stable Disposition: HOME Prescriptions: Ondansetron ODT TAB* [Zofran 4 MG Odt TAB*] 4 mg PO Q8H PRN #15 tab.odt PRN Reason: Vomiting Pantoprazole TAB (NF) [Protonix TAB (NF)] 40 mg PO DAILY #30 tab Patient Education Materials: Acute Abdominal Pain (ED), Acute Nausea and Vomiting (ED) Referrals: Ernst Morton MD [Primary Care Provider] - 3 Days The documentation as recorded by the Tish dumont Rebecca accurately reflects the service I personally performed and the decisions made by , Cole Gandhi.
[2017-07-27] MEDS ORDERED: Ondansetron ODT TAB* 4 MG ONE (04:06)
[2017-07-27] MEDS ORDERED: Ondansetron ODT TAB* 4 MG PO ONE (04:06)
[2017-07-27 04:22] VITALS: BP 138/81
--- NOTE | 2017-07-27 08:20 | RAD ---
Indication: Chest pain. Single frontal view of the chest performed at 0003 hours was reviewed. Comparison is made with previous exam dated October 08, 2016. No mediastinal shift is noted. Heart is of normal size and configuration. Lung conklin appear clear. IMPRESSION: NO ACTIVE CARDIOPULMONARY DISEASE IS NOTED.
--- NOTE | 2017-07-27 09:14 | PN ---
Progress Note - Progress Note Date of Service: 07/24/17 Note: preliminary urine culture results shows 10-25,000 of e. coli. no complaint of symptoms. diagnosed with abdominal pain. no signs of UTI and growth not significant enough for treatment. will await final culture sensitivities. no further action required at this time.
--- NOTE | 2017-07-27 09:49 | RAD ---
Indication: Diffuse abdominal pain, diverticulitis. Contrast: Administered 88.0 ml of OMNIPAQUE 300 mg/ml CT of the abdomen and pelvis was performed after IV contrast administration. Coronal and sagittal reconstructed images were obtained. Comparison is made with previous exam dated July 24, 2017. Lung bases demonstrate no pleural fluid, nodules or masses. Heart is of normal size without evidence of pericardial effusion. Liver is normal in size. No focal lesions or intrahepatic ductal dilatation is noted. Typical focal fatty infiltration in the anterior aspect of the tibial segment of left lobe of liver is noted. The gallbladder demonstrates no calcified gallstones. No pericholecystic fluid or wall thickening is identified. Pancreas demonstrates no mass or pancreatic duct dilatation. Common duct is not dilated. No adrenal lesions are noted. The kidneys demonstrate symmetric nephrograms. There is a calculus in the upper pole of left kidney measuring up to 5 mm. This is in the upper pole calyx. There is adjacent nonenhancing renal parenchyma which may represent localized infection. Correlation with urinalysis may be helpful. No retroperitoneal lymphadenopathy is noted. No dilated loops of bowel are noted. The colon is filled with stool. CT of the pelvis demonstrates stool throughout the colon. No pelvic adenopathy is noted. The uterus and ovaries are otherwise unremarkable. No hernias are noted. No free fluid is identified. No adenopathy is noted. IMPRESSION: NO ABNORMAL MASSES OR FLUID COLLECTIONS ARE IDENTIFIED. CALCULUS IN THE MIDPORTION OF THE LEFT KIDNEY MEASURING 5 MM. NONENHANCING AREAS ARE NOTED PERIPHERAL TO THE CALCIFICATIONS. I CANNOT TOTALLY EXCLUDE PYELONEPHRITIS AND CORRELATION WITH URINALYSIS SHOULD BE CONSIDERED.
== END 2017-07-27 04:21 | disposition home or self-care (01) ==
LOC: ED 23:02
DX: R07.9 Chest pain, unspecified (principal); R11.10 Vomiting, unspecified; R10.9 Unspecified abdominal pain; F17.210 Nicotine dependence, cigarettes, uncomplicated
CPT/HCPCS: 36415; 71010; 74177; 80053; 83605; 83690; 84484; 84702; 85025; 93005; 96374; 96375; 99283; A9270-GY; J1170; J1885; J2270; J2405; J2765; Q9967

== ENCOUNTER 2018-01-15 07:01 | Emergency (ER) | payer OTHER ==
[2018-01-15] MEDS ORDERED: LORazepam TAB(*) 1 MG PO ONE (07:13)
[2018-01-15 08:04] LABS: ABS Basophils 0.1 10^3/ul (0-0.2); ABS Eosinophils 0.2 10^3/ul (0-0.6); ABS Lymphocytes 1.9 10^3/ul (1.0-4.8); ABS Monocytes 0.7 10^3/ul (0-0.8); ABS Neutrophils 5.6 10^3/ul (1.5-7.7); ABS Nucleated RBC 0 10^3/ul; Eosinophil % 1.9 % (0-6); Hematocrit 42 % (35-47); Hemoglobin 14.4 g/dl (12.0-16.0); Lymphocyte % 22.2 % (25-47); Mean Corpuscular HGB Conc 35 g/dl (31-36); Mean Corpuscular Hemoglobin 31 pg (27-31); Mean Corpuscular Volume 89 fL (80-97); Mean Platelet Volume 8 um3 (7.4-10.4); Nucleated Red Blood Cells % 0; Platelet Count 358 10^3/ul (150-450); Red Blood Count 4.68 10^6/ul (4.0-5.4); Red Cell Distribution Width 14 % (10.5-15); White Blood Count 8.4 10^3/ul (3.5-10.8)
[2018-01-15 08:16] LABS: Urine Appearance Cloudy; Urine Blood Negative (Negative); Urine Color Amber; Urine Ketones Negative (Negative); Urine Protein 2+(100 mg/dL) (Negative); Urine Specific Gravity 1.024 (1.010-1.030); Urine Urobilinogen Negative (Negative)
[2018-01-15 08:25] LABS: EGFR Non-African American 67.8 (>60)
--- NOTE | 2018-01-15 08:31 | RAD ---
Indication: Left lower extremity numbness. CT of the brain was performed without IV contrast administration. Ventricular structures are midline. No midline shift is noted. The extraction spaces are unremarkable. There is no evidence of intracranial mass or hemorrhage. No other high or low density lesions are identified. Mastoid air cells and paranasal sinuses are otherwise unremarkable. Paranasal sinuses are otherwise unremarkable. No changes noted since May 07, 2017. IMPRESSION: No intracranial mass or hemorrhage is noted.
[2018-01-15] MEDS ORDERED: Potassium Chlor TAB* 20 MEQ TAB.ER PO ONE (09:12)
--- NOTE | 2018-01-15 10:04 | RAD ---
INDICATION: Can't feel LEFT leg after IV drug use. COMPARISON: No relevant prior exams available on the [facility] for comparison. TECHNIQUE: Huffman scale, color Doppler, and spectral analysis of the deep veins of the LEFT lower extremity. Vessel compression, phasicity, and augmentation assessed. REPORT: The LEFT common femoral, great saphenous, profunda femoral, femoral, popliteal, peroneal, and posterior tibial veins are patent. Patency of the RIGHT common femoral vein documented. IMPRESSION: No evidence for LEFT lower extremity deep venous thrombosis.
[2018-01-15] MEDS ORDERED: Sulfamethox/Trimethoprim DS 800/160* TAB PO ONE (10:29)
[2018-01-15 10:44] VITALS: BP 122/68
--- NOTE | 2018-01-16 08:21 | ED ---
Jim Vicente Angela, scribed for Abhi Rice MD on 01/15/18 at 0738 . Lower Extremity - HPI Summary HPI Summary: This pt is a 32 y/o female presenting to [facility] via EMS c/o left leg numbness since today at 03:00. Pt reports she is unable to feel her left leg. Pt reports she used meth and heroin yesterday prior to the onset of her symptoms. She additionally notes she has needle feeling on her bilateral finger tips. - History of Current Complaint Chief Complaint: EDExtremityLower Stated Complaint: LT LEG PROBLEM Time Seen by Provider: 01/15/18 07:13 Hx Obtained From: Patient Hx Last Menstrual Period: 05/04/17 Mechanism Of Injury: Other - none Onset of Pain: Hours Onset/Duration: Hours Severity Currently: None Pain Intensity: 0 Pain Scale Used: 0-10 Numeric Timing: Lasting Hours Location: Is Discrete @ - left leg and bilateral upper extremities Associated Signs And Symptoms: Positive: Negative Aggravating Factor(s): Nothing Alleviating Factor(s): Nothing Able to Bear Weight: Yes - Allergies/Home Medications Allergies/Adverse Reactions: Allergies Allergy/AdvReac Type Severity Reaction Status Date / Time latex Allergy Mild Rash Verified 01/15/18 07:14 shellfish derived Allergy Swelling Verified 01/15/18 07:14 Of Face,Lips,& Throat PMH/Surg Hx/FS Hx/Imm Hx Endocrine/Hematology History: Reports: Hx Thyroid Disease - She is not on medications for this because she does not like the feel. Denies: Hx Anticoagulant Therapy, Hx Blood Disorders, Hx Diabetes Cardiovascular History: Denies: Hx Congestive Heart Failure, Hx Deep Vein Thrombosis, Hx Hypertension , Hx Myocardial Infarction, Hx Pacemaker/ICD Respiratory History: Reports: Hx Asthma, Other Respiratory Problems/Disorders - Hx LT LUNG COLLAPSE/FLUID Denies: Hx Chronic Obstructive Pulmonary Disease (COPD), Hx Lung Cancer, Hx Pneumonia, Hx Pulmonary Embolism GI History: Reports: Hx Crohn's Disease, Hx Gastroesophageal Reflux Disease, Other GI Disorders - GERD Denies: Hx Gall Bladder Disease, Hx Gastrointestinal Bleed, Hx Ulcer, Hx Urosepsis History: Reports: Hx Kidney Stones, Hx Renal Disease - STONES Denies: Hx Dialysis Musculoskeletal History: Reports: Other Musculoskeletal History - CHRONIC BACK PAIN,SCOLOSIS BORN W/L3-S1 FUSION Sensory History: Reports: Hx Contacts or Glasses Denies: Hx Hearing Aid Opthamlomology History: Reports: Hx Contacts or Glasses Neurological History: Reports: Hx Headaches, Hx Migraine Denies: Hx Dementia, Hx Seizures, Hx Transient Ischemic Attacks (TIA) Psychiatric History: Reports: Hx Anxiety, 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 extra congenital breast removed. removal of cervical cancer 6 year. lumbar fusion (FOR SCOLIOSIS). collapsed lung 2013 Hx Anesthesia Reactions: No Infectious Disease History: No Infectious Disease History: Reports: Hx Hepatitis, Hx of Known/Suspected MRSA Denies: Hx Clostridium Difficile, Hx Human Immunodeficiency Virus (HIV), Hx Shingles, Hx Tuberculosis, Traveled Outside the [place] in Last 30 Days - Family History Known Family History: Positive: Diabetes, Other - She grew up in foster care-- has limited information regarding her fmhx Negative: Cardiac Disease, Hypertension - Social History Alcohol Use: None Alcohol Amount: sober since 01/19/14 Hx Substance Use: No Substance Use Type: Reports: None, Heroin, Marijuana Substance Use Comment - Amount & Last Used: Hx of heriod. Last use 10/18/16 Hx Tobacco Use: Yes Smoking Status (MU): Current Every Day Smoker Type: Cigarettes Amount Used/How Often: 1/2 PPD Length of Time of Smoking/Using Tobacco: 15 years Have You Smoked in the Last Year: Yes Review of Systems Negative: Fever, Chills ENT: Negative Cardiovascular: Negative Respiratory: Negative Gastrointestinal: Negative Genitourinary: Negative Musculoskeletal: Negative Positive: Paresthesia - in fingers of bilateral UE, Numbness - left leg All Other Systems Reviewed And Are Negative: Yes Physical Exam - Summary Physical Exam Summary: VITAL SIGNS: Reviewed. GENERAL: Patient is a well-developed and nourished female who is lying comfortable in the stretcher. Patient is not in any acute respiratory distress. HEAD AND FACE: No signs of trauma. No ecchymosis, hematomas or skull depressions. No sinus tenderness. EYES: PERRLA, EOMI x 2, No injected conjunctiva, no nystagmus. EARS: Hearing grossly intact. Ear canals and tympanic membranes are within normal limits. MOUTH: Oropharynx within normal limits. NECK: Supple, trachea is midline, no adenopathy, no JVD, no carotid bruit, no c- spine tenderness, neck with full ROM. CHEST: Symmetric, no tenderness at palpation LUNGS: Clear to auscultation bilaterally. No wheezing or crackles. CVS: Regular rate and rhythm, S1 and S2 present, no murmurs or gallops appreciated. ABDOMEN: Soft, non-tender. No signs of distention. No rebound no guarding, and no masses palpated. Bowel sounds are normal. EXTREMITIES: FROM in all major joints, no edema, no cyanosis or clubbing. Pt has tracks on bilateral upper extremities. LLE: left leg has good pulses, good sensation, good capillary refill. No weakness. No ecchymosis. No hematoma. No deformities. NEURO: Alert and oriented x 3. No acute neurological deficits. Speech is normal and follows commands. SKIN: Dry and warm GCS: 15 Triage Information Reviewed: Yes Vital Signs On Initial Exam: Initial Vitals Temp Pulse Resp BP Pulse Ox 97.7 F 118 28 130/90 98 01/15/18 07:07 01/15/18 07:07 01/15/18 07:07 01/15/18 07:07 01/15/18 07:07 Vital Signs Reviewed: Yes - [place] Coma Scale Best Eye Response: 4 - Spontaneous Best Motor Response: 6 - Obeys Commands Best Verbal Response: 5 - Oriented Coma Scale Total: 15 Diagnostics - Vital Signs Vital Signs Temp Pulse Resp BP Pulse Ox 01/15/18 07:07 97.7 F 118 28 130/90 98 - Laboratory Lab Results: Lab Results 01/15/18 01/15/18 01/15/18 Range/Units 07:42 07:42 07:54 WBC (3.5-10.8) 10^3/ul RBC (4.0-5.4) 10^6/ul Hgb (12.0-16.0) g/dl Hct (35-47) % MCV (80-97) fL MCH (27-31) pg MCHC (31-36) g/dl RDW (10.5-15) % Plt Count (150-450) 10^3/ul MPV (7.4-10.4) um3 Neut % (Auto) (38-83) % Lymph % (Auto) (25-47) % Starke % (Auto) (0-7) % Eos % (Auto) (0-6) % Baso % (Auto) (0-2) % Absolute Neuts (auto) (1.5-7.7) 10^3/ul Absolute Lymphs (auto) (1.0-4.8) 10^3/ul Absolute Monos (auto) (0-0.8) 10^3/ul Absolute Eos (auto) (0-0.6) 10^3/ul Absolute Basos (auto) (0-0.2) 10^3/ul Absolute Nucleated RBC 10^3/ul Nucleated RBC % Sodium 132 L (133-145) mmol/L Potassium 3.2 L (3.5-5.0) mmol/L Chloride 99 L (101-111) mmol/L Carbon Dioxide 22 (22-32) mmol/L Anion Gap 11 (2-11) mmol/L BUN 23 (6-24) mg/dL Creatinine 0.96 H (0.51-0.95) mg/dL Est GFR ( Amer) 87.2 (>60) Est GFR (Non-Af Amer) 67.8 (>60) BUN/Creatinine Ratio 24.0 H (8-20) Glucose 123 H (70-100) mg/dL Calcium 10.0 (8.6-10.3) mg/dL Total Bilirubin 0.70 (0.2-1.0) mg/dL AST 15 (13-39) U/L ALT 11 (7-52) U/L Alkaline Phosphatase 85 (34-104) U/L Total Protein 8.2 (6.4-8.9) g/dL Albumin 4.5 (3.2-5.2) g/dL Globulin 3.7 (2-4) g/dL Albumin/Globulin Ratio 1.2 (1-3) TSH 2.09 (0.34-5.60) mcIU/mL Beta HCG, Quant < 0.60 mIU/mL Urine Color [place] Urine Appearance Cloudy Urine pH 7.0 (5-9) Ur Specific [place] 1.024 (1.010-1.030) Urine Protein 2+(100 mg/dl) A (Negative) Urine Ketones Negative (Negative) Urine Blood Negative (Negative) Urine Nitrate Positive A (Negative) Urine Bilirubin Negative (Negative) Urine Urobilinogen Negative (Negative) Ur Leukocyte Esterase 3+ A (Negative) Urine WBC (Auto) 3+(>20/hpf) A (Absent) Urine RBC (Auto) Trace(0-2/hpf) (Absent) Ur Squamous Epith Cells Present A (Absent) Uric Acid Crystals Present A (Absent) Urine Bacteria Absent (Absent) Hyaline Casts Present A (Absent) Urine Glucose Negative (Negative) Salicylates < 2.50 (<30) mg/dL Urine Opiates Screen Presumptive positive A (None Detect) Acetaminophen < 15 mcg/mL Ur Barbiturates Screen None detected (None Detect) Ur Phencyclidine Scrn None detected (None Detect) Ur Amphetamines Screen Presumptive positive A (None Detect) U Benzodiazepines Scrn None detected (None Detect) Urine Cocaine Screen Presumptive positive A (None Detect) U Cannabinoids Screen Presumptive positive A (None Detect) Serum Alcohol < 10 (<10) mg/dL 01/15/18 Range/Units 07:54 WBC 8.4 (3.5-10.8) 10^3/ul RBC 4.68 (4.0-5.4) 10^6/ul Hgb 14.4 (12.0-16.0) g/dl Hct 42 (35-47) % MCV 89 (80-97) fL MCH 31 (27-31) pg MCHC 35 (31-36) g/dl RDW 14 (10.5-15) % Plt Count 358 (150-450) 10^3/ul MPV 8 (7.4-10.4) um3 Neut % (Auto) 66.7 (38-83) % Lymph % (Auto) 22.2 L (25-47) % Starke % (Auto) 8.5 H (0-7) % Eos % (Auto) 1.9 (0-6) % Baso % (Auto) 0.7 (0-2) % Absolute Neuts (auto) 5.6 (1.5-7.7) 10^3/ul Absolute Lymphs (auto) 1.9 (1.0-4.8) 10^3/ul Absolute Monos (auto) 0.7 (0-0.8) 10^3/ul Absolute Eos (auto) 0.2 (0-0.6) 10^3/ul Absolute Basos (auto) 0.1 (0-0.2) 10^3/ul Absolute Nucleated RBC 0 10^3/ul Nucleated RBC % 0 Sodium (133-145) mmol/L Potassium (3.5-5.0) mmol/L Chloride (101-111) mmol/L Carbon Dioxide (22-32) mmol/L Anion Gap (2-11) mmol/L BUN (6-24) mg/dL Creatinine (0.51-0.95) mg/dL Est GFR ( Amer) (>60) Est GFR (Non-Af Amer) (>60) BUN/Creatinine Ratio (8-20) Glucose (70-100) mg/dL Calcium (8.6-10.3) mg/dL Total Bilirubin (0.2-1.0) mg/dL AST (13-39) U/L ALT (7-52) U/L Alkaline Phosphatase (34-104) U/L Total Protein (6.4-8.9) g/dL Albumin (3.2-5.2) g/dL Globulin (2-4) g/dL Albumin/Globulin Ratio (1-3) TSH (0.34-5.60) mcIU/mL Beta HCG, Quant mIU/mL Urine Color Urine Appearance Urine pH (5-9) Ur Specific [place] (1.010-1.030) Urine Protein (Negative) Urine Ketones (Negative) Urine Blood (Negative) Urine Nitrate (Negative) Urine Bilirubin (Negative) Urine Urobilinogen (Negative) Ur Leukocyte Esterase (Negative) Urine WBC (Auto) (Absent) Urine RBC (Auto) (Absent) Ur Squamous Epith Cells (Absent) Uric Acid Crystals (Absent) Urine Bacteria (Absent) Hyaline Casts (Absent) Urine Glucose (Negative) Salicylates (<30) mg/dL Urine Opiates Screen (None Detect) Acetaminophen mcg/mL Ur Barbiturates Screen (None Detect) Ur Phencyclidine Scrn (None Detect) Ur Amphetamines Screen (None Detect) U Benzodiazepines Scrn (None Detect) Urine Cocaine Screen (None Detect) U Cannabinoids Screen (None Detect) Serum Alcohol (<10) mg/dL Result Diagrams: 01/15/18 07:54 01/15/18 07:54 Lab Statement: Any lab studies that have been ordered have been reviewed, and results considered in the medical decision making process. - CT Brain CT CT Interpretation: No Acute Changes - IMPRESSION: No intracranial mass or hemorrhage is noted. Dr. Rice has reviewed this radiology report. CT Interpretation Completed By: Radiologist - Ultrasound No standard instances Ultrasound Interpretation: No Acute Changes - Ultrasound of LLE IMPRESSION: No evidence for LEFT lower extremity deep venous thrombosis. Dr. Rice has reviewed this radiology report. Ultrasound Interpretation Completed By: Radiologist - EKG 07:22 Cardiac Rate: Tachycardia EKG Rhythm: Sinus Tachycardia - at 116 bpm EKG Interpretation: No ST elevations. Lower Extremity Course/Dx - Course Assessment/Plan: This pt is a 32 y/o female presenting to [facility] via EMS c/o left leg numbness since today at 03:00. Pt reports she is unable to feel her left leg. Pt reports she used meth and heroin yesterday prior to the onset of her symptoms. She additionally notes she has needle feeling on her bilateral finger tips. Test results without any significant abnormalities except for potassium of 3.2, for which she was given potassium chloride, glucose of 123. Urinalysis is positive for UTI. Urine toxicology is positive for opiates, amphetamines, cocaine, and cannabinoids. In the ED course the pt was given Ativan and Bactrim for the UTI. After Ativan, pt is feeling better. Brain CT shows no intracranial mass or hemorrhage is noted. Ultrasound of the left lower extremity: No evidence for LEFT lower extremity deep venous thrombosis. Therefore pt will be discharged to home with follow up from her PCP. She will be given a prescription for Bactrim. I discussed all the findings and test results with the patient. Patient was instructed to return to the emergency room immediately if any of the symptoms return or worsens. Plan of care was discussed with the patient and understands and agrees. All questions were answered at patient satisfaction. There were no further complaints or concerns. She is instructed to return to the ED for any worsening or new symptoms. Pt is hemodynamically stable, alert and oriented x3. - Diagnoses Provider Diagnoses: Paresthesia, Polysubstance abuse, Urinary tract infection Discharge - Discharge Plan Condition: Stable Disposition: HOME Prescriptions: Sulfamethox/Trimethoprim DS* [Bactrim DS 800/160 TAB*] 1 tab PO BID #14 tab Patient Education Materials: Urinary Tract Infection in Women (ED), Paresthesia (ED), Polysubstance Abuse (ED) Referrals: Ernst Morton MD [Primary Care Provider] - 3 Days Additional Instructions: Please follow up with your primary care provider. RETURN TO THE ED FOR ANY WORSENING SYMPTOMS. The documentation as recorded by the Jim dumont Angela accurately reflects the service I personally performed and the decisions made by me, Abhi Rice MD.
--- NOTE | 2018-01-17 09:00 | PN ---
Progress Note - Progress Note Date of Service: 01/15/18 Note: patient diagnosed and treated for UTI. placed on bactrim. preliminary results grew >100,000 of proteus mirabilis. will wait for final sensitivity results although bactrim should be sufficient. no further action required at this time.
== END 2018-01-15 10:47 | disposition home or self-care (01) ==
LOC: ED 07:01
DX: R20.2 Paresthesia of skin (principal); F19.10 Other psychoactive substance abuse, uncomplicated; N39.0 Urinary tract infection, site not specified; B96.4 Proteus (mirabilis) (morganii) as the cause of diseases classified elsewhere
CPT/HCPCS: 36415; 70450; 80053; 80307; 80320; 80329; 81003; 81015; 84443; 84702; 85025; 87077; 87086; 87184; 87186; 93005; 99283; A9270-GY; G0480

== ENCOUNTER 2018-03-23 04:29 | Emergency (ER) | payer OTHER ==
[2018-03-23] MEDS ORDERED: Haloperidol INJ IV/IM* 5 MG/ML AMP IM ONE (04:35)
[2018-03-23] MEDS ORDERED: LORazepam INJ* 2 MG/ML 1 ML VIAL IV PUSH ONE ×2 (04:36→04:43)
[2018-03-23] MEDS ORDERED: Haloperidol INJ IV/IM* 5 MG/ML AMP IV SLOW PU ONE (04:43)
[2018-03-23 05:02] LABS: ABS Basophils 0.1 10^3/ul (0-0.2); ABS Eosinophils 0.1 10^3/ul (0-0.6); ABS Lymphocytes 1.5 10^3/ul (1.0-4.8); ABS Monocytes 0.8 10^3/ul (0-0.8); ABS Neutrophils 9.6 10^3/ul (1.5-7.7); ABS Nucleated RBC 0 10^3/ul; Eosinophil % 0.7 % (0-6); Hematocrit 45 % (35-47); Hemoglobin 15.5 g/dl (12.0-16.0); Lymphocyte % 12.3 % (25-47); Mean Corpuscular HGB Conc 34 g/dl (31-36); Mean Corpuscular Hemoglobin 31 pg (27-31); Mean Corpuscular Volume 90 fL (80-97); Mean Platelet Volume 8.5 um3 (7.4-10.4); Nucleated Red Blood Cells % 0; Platelet Count 284 10^3/ul (150-450); Red Blood Count 5.03 10^6/ul (4.0-5.4); Red Cell Distribution Width 14 % (10.5-15); White Blood Count 11.9 10^3/ul (3.5-10.8)
[2018-03-23 05:16] LABS: EGFR Non-African American 94.5 (>60)
[2018-03-23] MEDS ORDERED: diPHENhydraMINE IV* 50 MG/ML 1 ml VIAL (BENADRYL) IV ONE (06:11)
[2018-03-23 06:23] LABS: Urine Appearance Cloudy; Urine Color Yellow; Urine Specific Gravity 1.005 (1.010-1.030); Urine Urobilinogen Negative (Negative)
[2018-03-23 06:24] LABS: Urine Blood Negative (Negative); Urine Ketones 1+ (Negative); Urine Protein 1+(30 mg/dL) (Negative)
--- NOTE | 2018-03-23 08:09 | RAD ---
HISTORY: Colicky abdominal pain COMPARISONS: None TECHNIQUE: Multiple transverse and longitudinal ultrasound images were obtained of the right upper quadrant of the abdomen using grayscale and color Doppler imaging. FINDINGS: LIVER: The liver is normal in shape, size, contour, and echogenicity. There are no focal parenchymal masses. There is normal hepatopedal flow of the portal vein on Doppler imaging. BILIARY TREE: There is no intrahepatic or extrahepatic biliary dilatation. The common duct measures 0.5 cm. GALLBLADDER: The gallbladder is well-visualized. There is no cholelithiasis, gallbladder wall thickening, pericholecystic fluid, or sonographic Corral sign. PANCREAS: The head of the pancreas is unremarkable. The tail of the pancreas is not well visualized secondary to overlying bowel gas. RIGHT KIDNEY: The right kidney is normal in shape, size, contour, and echogenicity. There is no hydronephrosis or nephrolithiasis. The right kidney measures 10.9 x 3.8 x 4.3 cm. AORTA AND IVC: The aorta and IVC are unremarkable. FLUID: There are no pleural effusions. There is no free fluid within the hepatorenal recess. OTHER FINDINGS: None. IMPRESSION: NO CHOLELITHIASIS OR SONOGRAPHIC FEATURES OF ACUTE CHOLECYSTITIS. NO ACUTE SONOGRAPHIC PATHOLOGY OF THE VISUALIZED PORTION OF THE ABDOMEN.
--- NOTE | 2018-03-23 08:29 | ED ---
Sandie Vicente Gabriel, scribed for Abhi Rice MD on 03/23/18 at 0813 . Progress - Progress Note Progress Note: This patient is a 32 F c/o n/v that was signed out from Dr. Mcleod awaiting US results. If the US is negative the pt will be discharged and follow up with PCP as per request of Dr. Mcleod. US Gallbladder reveals, per radiology, NO CHOLELITHIASIS OR SONOGRAPHIC FEATURES OF ACUTE CHOLECYSTITIS. NO ACUTE SONOGRAPHIC PATHOLOGY OF THE VISUALIZED PORTION OF THE ABDOMEN. Re-Evaluation - Re-Evaluation First Eval Re-Evaluation Time: 08:00 Change: Improved Comment: The patient is lying comfortably in the bed and has just finished her US. Course/Dx - Course Course Of Treatment: I discussed all the findings and test results with the patient. Patient was instructed to return to the emergency room immediately if any of the symptoms return or worsens. Plan of care was discussed with the patient and understands and agrees. All questions were answered at patient satisfaction. There were no further complaints or concerns. Lung exam before discharge: CTA B/L. Good air exchange. No wheezing or crackles heard. CVS: S1 and S2 present. No murmurs appreciated. Patient is alert and oriented x 3. Patient is hemodynamically stable. Patient will be discharged home with follow up PCP in the next 2-3 days - Diagnoses Provider Diagnoses: Nausea & vomiting, Abdominal pain Discharge - Sign-Out/Discharge Documenting (check all that apply): Discharge/Admit/Transfer - Discharge Plan Condition: Improved Disposition: HOME Prescriptions: Prochlorperazine TAB* [Compazine Tab*] 10 mg PO Q6H PRN #12 tab PRN Reason: Nausea Patient Education Materials: Acute Nausea and Vomiting (ED) Referrals: Ernst Morton MD [Primary Care Provider] - 3 Days Additional Instructions: RETURN TO THE ER FOR ANY NEW OR WORSENING SYMPTOMS - Billing Disposition and Condition Condition: IMPROVED Disposition: HOME The documentation as recorded by the Sandie dumont Gabriel accurately reflects the service I personally performed and the decisions made by me, Abhi Rice MD.
[2018-03-23 09:11] VITALS: BP 141/85
--- NOTE | 2018-03-25 07:07 | PN ---
Progress Note - Progress Note Date of Service: 03/25/18 Note: patient urine culture grew proteus mirabilis >100,000. sent script augmentin 500mg bid x5days. left vm telling of change. <Yanet Mcarthur - Last Filed: 03/25/18 07:04> Attestation Statement User Type: Provider - I was available for consult. This patient was seen by the [place]. The patient was not presented to, seen by, or examined by me. -Db <Mariia Werner - Last Filed: 03/27/18 12:06>
--- NOTE | 2018-03-26 00:47 | ED ---
Lakia Vicente Julia, scribed for Ben Mcleod MD on 03/23/18 at 0456 . Complex/Multi-Sys Presentation - HPI Summary HPI Summary: This patient is a 32 year old F BIBA to [facility] with a chief complaint of pain "all over" with nausea, vomiting, chills, and sweats since yesterday evening. Patient denies diarrhea. She states she has been without Flexeril and Baclofen for the past 2-3 days. She reports previous IV heroin injection with the last use about 1.5 years ago. She is currently taking Suboxone. - History Of Current Complaint Chief Complaint: EDNauseaVomitDiarrh Time Seen by Provider: 03/23/18 04:35 Hx Obtained From: Patient Onset/Duration: Lasting Hours Timing: Constant Location: Pain At: - generalized Associated Signs And Symptoms: Positive: Nausea, Vomiting, Fever Related History: Other - IV drug use - Allergies/Home Medications Allergies/Adverse Reactions: Allergies Allergy/AdvReac Type Severity Reaction Status Date / Time latex Allergy Mild Rash Verified 03/23/18 04:35 shellfish derived Allergy Swelling Verified 03/23/18 04:35 Of Face,Lips,& Throat sulfamethoxazole Allergy BODY IS Verified 03/23/18 04:35 [From Bactrim] IMMUNED TO IT trimethoprim [From Bactrim] Allergy BODY IS Verified 03/23/18 04:35 IMMUNED TO IT PMH/Surg Hx/FS Hx/Imm Hx Endocrine/Hematology History: Reports: Hx Thyroid Disease - She is not on medications for this because she does not like the feel. Denies: Hx Anticoagulant Therapy, Hx Blood Disorders, Hx Diabetes Cardiovascular History: Denies: Hx Congestive Heart Failure, Hx Deep Vein Thrombosis, Hx Hypertension , Hx Myocardial Infarction, Hx Pacemaker/ICD Respiratory History: Reports: Hx Asthma, Other Respiratory Problems/Disorders - Hx LT LUNG COLLAPSE/FLUID Denies: Hx Chronic Obstructive Pulmonary Disease (COPD), Hx Lung Cancer, Hx Pneumonia, Hx Pulmonary Embolism GI History: Reports: Hx Crohn's Disease, Hx Gastroesophageal Reflux Disease Denies: Hx Gall Bladder Disease, Hx Gastrointestinal Bleed, Hx Ulcer, Hx Urosepsis History: Reports: Hx Kidney Stones Denies: Hx Dialysis Musculoskeletal History: Reports: Other Musculoskeletal History - CHRONIC BACK PAIN,SCOLOSIS BORN W/L3-S1 FUSION Sensory History: Reports: Hx Contacts or Glasses Denies: Hx Hearing Aid Opthamlomology History: Reports: Hx Contacts or Glasses Neurological History: Reports: Hx Headaches, Hx Migraine Denies: Hx Dementia, Hx Seizures, Hx Transient Ischemic Attacks (TIA) Psychiatric History: Reports: Hx Anxiety, 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 extra congenital breast removed. removal of cervical cancer 6 year. lumbar fusion (FOR SCOLIOSIS). collapsed lung 2013. 06/2017 FRACTURED T11 Hx Anesthesia Reactions: No Infectious Disease History: No Infectious Disease History: Reports: Hx Hepatitis - hep c gone, Hx of Known/ Suspected MRSA Denies: Hx Clostridium Difficile, Hx Human Immunodeficiency Virus (HIV), Hx Shingles, Hx Tuberculosis, Traveled Outside the [place] in Last 30 Days - Family History Known Family History: Positive: Diabetes, Other - She grew up in foster care-- has limited information regarding her fmhx Negative: Cardiac Disease, Hypertension - Social History Alcohol Use: None Alcohol Amount: sober since 01/19/14 Hx Substance Use: No Substance Use Type: Reports: Heroin, Marijuana Substance Use Comment - Amount & Last Used: Hx of heriod. Last use 10/18/16 Hx Tobacco Use: Yes Smoking Status (MU): Current Every Day Smoker Type: Cigarettes Amount Used/How Often: 1/2 PPD Length of Time of Smoking/Using Tobacco: 15 years Have You Smoked in the Last Year: Yes Review of Systems Positive: Chills, Skin Diaphoresis Positive: Vomiting, Nausea. Negative: Diarrhea Positive: Myalgia All Other Systems Reviewed And Are Negative: Yes Physical Exam - Summary Physical Exam Summary: Appearance: agitated, hyperkinetic Skin: Warm, dry, no obvious rash Eyes: sclera anicteric, no conjunctiva pallor ENT: mucous membranes moist, pharynx appears normal Neck: Supple, nontender Respiratory: Clear to auscultation, no signs of respiratory distress Cardiovascular: Normal S1, S2. No murmurs. Normal distal pulses in tibial and radial bilaterally. Abdomen: Soft, nontender, normal active bowel sounds present Musculoskeletal: Normal, Strength/ROM Intact Neurological: A&Ox3, awake and alert, mentation is normal, speech is fluent and appropriate Psychiatric: affect is normal, does not appear anxious or depressed Triage Information Reviewed: Yes Vital Signs On Initial Exam: Initial Vitals Pulse Resp BP Pulse Ox 89 35 150/101 100 03/23/18 04:30 03/23/18 04:30 03/23/18 04:30 03/23/18 04:30 Vital Signs Reviewed: Yes Diagnostics - Vital Signs Vital Signs Temp Pulse Resp BP Pulse Ox 03/23/18 04:47 22 03/23/18 04:38 64 25 100 03/23/18 04:32 97.4 F 90 20 150/101 100 03/23/18 04:30 89 35 150/101 100 - Laboratory Lab Results: Lab Results 03/23/18 03/23/18 03/23/18 Range/Units 04:48 04:48 06:06 WBC 11.9 H (3.5-10.8) 10^3/ul RBC 5.03 (4.0-5.4) 10^6/ul Hgb 15.5 (12.0-16.0) g/dl Hct 45 (35-47) % MCV 90 (80-97) fL MCH 31 (27-31) pg MCHC 34 (31-36) g/dl RDW 14 (10.5-15) % Plt Count 284 (150-450) 10^3/ul MPV 8.5 (7.4-10.4) um3 Neut % (Auto) 80.0 (38-83) % Lymph % (Auto) 12.3 L (25-47) % [place]les % (Auto) 6.4 (0-7) % Eos % (Auto) 0.7 (0-6) % Baso % (Auto) 0.6 (0-2) % Absolute Neuts (auto) 9.6 H (1.5-7.7) 10^3/ul Absolute Lymphs (auto) 1.5 (1.0-4.8) 10^3/ul Absolute Monos (auto) 0.8 (0-0.8) 10^3/ul Absolute Eos (auto) 0.1 (0-0.6) 10^3/ul Absolute Basos (auto) 0.1 (0-0.2) 10^3/ul Absolute Nucleated RBC 0 10^3/ul Nucleated RBC % 0 Sodium 138 L (139-145) mmol/L Potassium 3.5 (3.5-5.0) mmol/L Chloride 100 L (101-111) mmol/L Carbon Dioxide 25 (22-32) mmol/L Anion Gap 13 H (2-11) mmol/L BUN 14 (6-24) mg/dL Creatinine 0.72 (0.51-0.95) mg/dL Est GFR ( Amer) 121.5 (>60) Est GFR (Non-Af Amer) 94.5 (>60) BUN/Creatinine Ratio 19.4 (8-20) Glucose 169 H (70-100) mg/dL Calcium 9.7 (8.6-10.3) mg/dL Total Bilirubin 0.50 (0.2-1.0) mg/dL AST 121 H (13-39) U/L ALT 165 H (7-52) U/L Alkaline Phosphatase 92 (34-104) U/L Total Protein 8.3 (6.4-8.9) g/dL Albumin 4.8 (3.2-5.2) g/dL Globulin 3.5 (2-4) g/dL Albumin/Globulin Ratio 1.4 (1-3) Lipase < 10 L (11.0-82.0) U/L Urine Color Yellow Urine Appearance Cloudy Urine pH 7 (5-9) Ur Specific [place] 1.005 L (1.010-1.030) Urine Protein 1+(30 mg/dl) A (Negative) Urine Ketones 1+ A (Negative) Urine Blood Negative (Negative) Urine Nitrate Negative (Negative) Urine Bilirubin Negative (Negative) Urine Urobilinogen Negative (Negative) Ur Leukocyte Esterase Trace A (Negative) Urine WBC (Auto) 2+(11-20/hpf) A (Absent) Urine RBC (Auto) Trace(0-2/hpf) (Absent) Ur Squamous Epith Cells Present A (Absent) Urine Bacteria Absent (Absent) Urine Glucose Negative (Negative) Urine Ascorbic Acid Not Reportable Result Diagrams: 03/23/18 04:48 03/23/18 04:48 Lab Statement: Any lab studies that have been ordered have been reviewed, and results considered in the medical decision making process. Re-Evaluation - Re-Evaluation First Eval Re-Evaluation Time: 07:08 Change: Improved - Nausea under control, requesting water. Will po trial, home if does well. Complex Multi-Symp Course/Dx - Diagnoses Provider Diagnoses: Nausea & vomiting Discharge - Sign-Out/Discharge Documenting (check all that apply): Discharge/Admit/Transfer - Discharge Plan Condition: Improved Disposition: HOME Prescriptions: Prochlorperazine TAB* [Compazine Tab*] 10 mg PO Q6H PRN #12 tab PRN Reason: Nausea Patient Education Materials: Acute Nausea and Vomiting (ED) Referrals: Ernst Morton MD [Primary Care Provider] - - Billing Disposition and Condition Condition: IMPROVED Disposition: HOME The documentation as recorded by the Lakia dumont Julia accurately reflects the service I personally performed and the decisions made by , Ben Mcleod MD.
--- NOTE | 2018-03-26 06:41 | PN ---
Progress Note - Progress Note Date of Service: 03/26/18 Note: patient placed on augmentin which final culture shows is sensitive to. no further action required.
== END 2018-03-23 09:07 | disposition home or self-care (01) ==
LOC: ED 04:29
DX: R11.2 Nausea with vomiting, unspecified (principal); R10.9 Unspecified abdominal pain; F17.210 Nicotine dependence, cigarettes, uncomplicated; Z88.2 Allergy status to sulfonamides
CPT/HCPCS: 36415; 76705; 80053; 81003; 81015; 83690; 85025; 87077; 87086; 87186; 96374; 96375; 99283; J1200; J1630; J2060

== ENCOUNTER 2018-04-16 06:51 | Emergency (ER) | payer OTHER ==
[2018-04-16] MEDS ORDERED: NS 0.9% 1000 ML* 1,000 ML IV ONE ×2 (07:19→08:00)
[2018-04-16] MEDS ORDERED: Ondansetron ODT TAB* 4 MG PO ONE (07:19)
[2018-04-16] MEDS ORDERED: Ondansetron ODT TAB* 4 MG ONE (07:21)
--- NOTE | 2018-04-16 07:39 | ED ---
Abdominal Pain/Female - HPI Summary HPI Summary: Pt. is a 32 y.o female who presents to the ER for acute vomiting, chills, and diffuse abdominal cramping that started early this morning. Denies associated symptoms of diarrhea, fever, URI sxs, urinary symptoms. Pt. has a history of heroin and is currently taking Suboxone. Pt. states she has been taking her suboxone daily as prescribed. She states she has not use any other narcotics in roughly 1.5 yrs. Pt. states she only uses THC. Symptoms are moderate in severity. No current modifying factors. - History of Current Complaint Chief Complaint: EDNauseaVomitDiarrh Stated Complaint: ABD PAIN Time Seen by Provider: 04/16/18 07:13 Hx Obtained From: Patient Hx Last Menstrual Period: end january Pain Intensity: 6 Allergies/Adverse Reactions: Allergies Allergy/AdvReac Type Severity Reaction Status Date / Time latex Allergy Mild Rash Verified 03/23/18 04:35 shellfish derived Allergy Swelling Verified 03/23/18 04:35 Of Face,Lips,& Throat sulfamethoxazole Allergy BODY IS Verified 03/23/18 04:35 [From Bactrim] IMMUNED TO IT trimethoprim [From Bactrim] Allergy BODY IS Verified 03/23/18 04:35 IMMUNED TO IT Home Medications: Home Medications Buprenorphine HCl/Naloxone HCl [Suboxone] 1 tab.sl SL BID 04/16/18 [History Confirmed 04/16/18] Gabapentin CAP(*) [Neurontin 300 CAP(*)] 900 mg PO QID 04/16/18 [History Confirmed 04/16/18] Potassium Chlor TAB* [Klor Con ER TAB*] 10 meq PO DAILY 04/16/18 [History Confirmed 04/16/18] PMH/Surg Hx/FS Hx/Imm Hx Previously Healthy: Yes Endocrine/Hematology History: Reports: Hx Thyroid Disease - She is not on medications for this because she does not like the feel. Denies: Hx Anticoagulant Therapy, Hx Blood Disorders, Hx Diabetes Cardiovascular History: Denies: Hx Congestive Heart Failure, Hx Deep Vein Thrombosis, Hx Hypertension , Hx Myocardial Infarction, Hx Pacemaker/ICD Respiratory History: Reports: Hx Asthma, Other Respiratory Problems/Disorders - Hx LT LUNG COLLAPSE/FLUID Denies: Hx Chronic Obstructive Pulmonary Disease (COPD), Hx Lung Cancer, Hx Pneumonia, Hx Pulmonary Embolism GI History: Reports: Hx Crohn's Disease, Hx Gastroesophageal Reflux Disease, Other GI Disorders - GERD Denies: Hx Gall Bladder Disease, Hx Gastrointestinal Bleed, Hx Ulcer, Hx Urosepsis History: Reports: Hx Kidney Stones, Hx Renal Disease - STONES Denies: Hx Dialysis Musculoskeletal History: Reports: Other Musculoskeletal History - CHRONIC BACK PAIN,SCOLOSIS BORN W/L3-S1 FUSION Sensory History: Reports: Hx Contacts or Glasses Denies: Hx Hearing Aid Opthamlomology History: Reports: Hx Contacts or Glasses Neurological History: Reports: Hx Headaches, Hx Migraine Denies: Hx Dementia, Hx Seizures, Hx Transient Ischemic Attacks (TIA) Psychiatric History: Reports: Hx Anxiety, 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 extra congenital breast removed. removal of cervical cancer 6 year. lumbar fusion (FOR SCOLIOSIS). collapsed lung 2013. 06/2017 FRACTURED T11 Hx Anesthesia Reactions: No Infectious Disease History: No Infectious Disease History: Reports: Hx Hepatitis - hep c gone, Hx of Known/ Suspected MRSA Denies: Hx Clostridium Difficile, Hx Human Immunodeficiency Virus (HIV), Hx Shingles, Hx Tuberculosis, Traveled Outside the [place] in Last 30 Days - Family History Known Family History: Positive: None, Diabetes, Other - She grew up in foster care--has limited information regarding her fmhx Negative: Cardiac Disease, Hypertension - Social History Occupation: Unemployed Lives: Alone Alcohol Use: None Alcohol Amount: sober since 01/19/14 Hx Substance Use: No Substance Use Type: Reports: Heroin, Marijuana Substance Use Comment - Amount & Last Used: Hx of heriod. Last use 10/18/16 Hx Tobacco Use: Yes Smoking Status (MU): Current Every Day Smoker Type: Cigarettes Amount Used/How Often: 1/2 PPD Length of Time of Smoking/Using Tobacco: 15 years Have You Smoked in the Last Year: Yes Review of Systems Constitutional: Negative Negative: Fever, Chills Eyes: Negative ENT: Negative Positive: Chest Pain Respiratory: Negative Positive: Abdominal Pain, Vomiting, Nausea. Negative: Diarrhea Genitourinary: Negative Neurological: Negative All Other Systems Reviewed And Are Negative: Yes Physical Exam Triage Information Reviewed: Yes Vital Signs On Initial Exam: Initial Vitals Temp Pulse Resp BP Pulse Ox 98.0 F 86 17 169/98 99 04/16/18 07:13 04/16/18 07:13 04/16/18 07:13 04/16/18 07:13 04/16/18 07:13 Vital Signs Reviewed: Yes Appearance: Positive: Pain Distress - Pt. sitting up in bed with legs pulled to chest rocking back and forth. Eyes closed. Skin: Positive: Warm, Diaphoretic, Pale Head/Face: Positive: Normal Head/Face Inspection Eyes: Positive: Normal Neck: Positive: Supple. Negative: Nuchal Rigidity Respiratory/Lung Sounds: Positive: Clear to Auscultation, Breath Sounds Present Cardiovascular: Positive: Normal, RRR Abdomen Description: Positive: Other: - Abdomen is soft with diffuse tenderness on light palpation. No rebound tenderness or guarding. Neurological: Positive: Normal, CN Intact II-III Psychiatric: Positive: Anxious Diagnostics - Vital Signs Vital Signs Temp Pulse Resp BP Pulse Ox 04/16/18 07:13 98.0 F 86 17 169/98 99 - Laboratory Result Diagrams: 04/16/18 08:01 04/16/18 08:35 Lab Statement: Any lab studies that have been ordered have been reviewed, and results considered in the medical decision making process. Abdominal Pain Fem Course/Dx - Course Course Of Treatment: Pt. presenting for abd. cramping, N/V, and chills. She is afebrile with stable vital signs. Labs and urine ordered. Pt. was given zofran and IV fluids started. CBC shows a leukocytosis of 15. CMP shows mildly elevated AST and ALT that are trending downward from last CMP. On re-exam pt. states that zofran did not help. Will try oral phenergan and give IV toradol for pain. After medicaiton pt. is sleeping comfortably and she states that her abd. pain has greatly improved. She was examined by Dr. Schroeder as well. He palpated her abd. and she had significant diffuse abd. tenderness, will obtain CT scan. U/A is nitrate positive with large WBC, will give a dose of IV rocephin. Pt.'s friend has states that he is concerned with pt.'s living situation. He states she has use narcotic within the last couple of weeks. He states pt. has friends staying with her that are daily drug users. Social service consult ordered. Pt.'s IV blew when contrast was started. It took numerous attempts to obtain IV access initially, will scan without contrast. CT scan shows bilateral nonobstructing renal calculi otherwise unremarkable, reading per radiology. Pt. was able to tolerate PO fluids. On re-exam she is resting comforting. Based on her prior urine cultures and susceptibility will treat with Keflex. Please see social work professor's note as well. Advised pt. to call PCP today for a close f.u apt. Tylenol or motrin for pain as directed. To return to ER for increased pain, fever, vomiting. - Diagnoses Differential Diagnosis: Positive: Appendicitis, Constipation, Diverticulitis, Ectopic , Hepatitis, Pancreatitis, Pelvic Inflammatory Disease, , Urinary Tract Infection Provider Diagnoses: UTI (urinary tract infection) Discharge - Sign-Out/Discharge Documenting (check all that apply): Discharge/Admit/Transfer - Discharge Plan Condition: Good Disposition: HOME Prescriptions: Cephalexin CAP* [Keflex CAP*] 500 mg PO BID #20 cap Ondansetron TAB* [Zofran 4 MG Tab*] 4 mg PO Q6H PRN #12 tab PRN Reason: Nausea Patient Education Materials: Urinary Tract Infection in Women (ED) Referrals: Ernst Morton MD [Primary Care Provider] - Additional Instructions: Call your PCP today for a close follow up appointment Take antibiotic as directed Increase fluids Tylenol or Motrin for pain as directed Return to ER for increased pain, fever, vomiting or if concerned - Billing Disposition and Condition Condition: GOOD Disposition: Home
[2018-04-16] MEDS ORDERED: Promethazine TAB* 25 MG PO ONE (07:59)
[2018-04-16] MEDS ORDERED: Ketorolac INJ* 30 MG/ML 1 ML VIAL IV PUSH ONE (07:59)
[2018-04-16 08:07] LABS: ABS Basophils 0 10^3/ul (0-0.2); ABS Eosinophils 0.1 10^3/ul (0-0.6); ABS Lymphocytes 1.4 10^3/ul (1.0-4.8); ABS Neutrophils 13.4 10^3/ul (1.5-7.7); ABS Nucleated RBC 0 10^3/ul; Eosinophil % 0.6 % (0-6); Hematocrit 42 % (35-47); Hemoglobin 14.2 g/dl (12.0-16.0); Lymphocyte % 8.8 % (25-47); Mean Corpuscular HGB Conc 34 g/dl (31-36); Mean Corpuscular Hemoglobin 32 pg (27-31); Mean Corpuscular Volume 93 fL (80-97); Nucleated Red Blood Cells % 0; Platelet Count 263 10^3/ul (150-450); Red Blood Count 4.47 10^6/ul (4.00-5.40); Red Cell Distribution Width 14 % (10.5-15); White Blood Count 15.8 10^3/ul (3.5-10.8)
[2018-04-16 09:20] LABS: EGFR Non-African American 80.2 (>60)
[2018-04-16 09:55] LABS: Urine Appearance Cloudy; Urine Blood 3+ (Negative); Urine Color Yellow; Urine Ketones Negative (Negative); Urine Protein 1+(30 mg/dL) (Negative); Urine Specific Gravity 1.015 (1.010-1.030); Urine Urobilinogen Negative (Negative)
[2018-04-16] MEDS ORDERED: cefTRIAXone(*) 1 GM in NS 0.9% 50 ML* 50 ML IVPB ONE (10:19)
[2018-04-16] MEDS ORDERED: Iohexol 300* (CONTRAST) 10 ML SDV IV ONE (10:38)
--- NOTE | 2018-04-16 11:50 | RAD ---
INDICATION: Diffuse abdominal pain COMPARISON: None TECHNIQUE: Noncontrast axial source images were acquired from the level hemidiaphragms to the symphysis pubis. Lack of oral and intravenous contrast least inherent limitations. Lung bases: The lung bases are clear. Liver: The liver is normal in size. Noncontrast imaging shows no evidence of a hepatic mass or ductal dilatation. Gallbladder: There are no calcified gallstones. There is no evidence of wall thickening or pericholecystic fluid.. Spleen: The spleen is normal in size. The noncontrast CT appearance is normal. Pancreas: Noncontrast imaging shows no pancreatic mass or ductal dilitation. Adrenal glands: No masses are identified. Kidneys/Bladder: There is trace contrast in the collecting system. The IVC was not adequate for routine contrast enhancement. There are bilateral nonobstructive calculi with a 2 mm calculus in the midpole region of the right kidney. In the left kidney and midpole region is a nonobstructive 7 mm calculus and there is also a 4 mm calculus at the UPJ. There are numerous calcifications in the minor pelvis which are consistent with phleboliths. The appearance is unchanged Adenopathy: There is no evidence of intraperitoneal or retroperitoneal adenopathy. Evaluation is limited without oral contrast. Fluid collections: There are no free or localized fluid collections. Vessels: The aorta and iliac vessels are normal in caliber. There are no significant atherosclerotic changes. The IVC appears normal Pelvic organs: The uterus and adnexa appear normal GI tract: Evaluation of the bowel is limited without oral contrast. The stomach, small bowel, and lower GI tract appear grossly normal. There are no obstructive findings. The appendix is not visualized. Soft tissues: No soft tissue abnormalities of the extraperitoneal abdomen or pelvis are identified. Osseous structures: There are no acute osseous findings. IMPRESSION: NONCONTRAST IMAGING DEMONSTRATES BILATERAL, NONOBSTRUCTIVE NEPHROLITHIASIS
[2018-04-16 12:15] VITALS: BP 92/51
--- NOTE | 2018-04-18 07:04 | ED ---
Progress - Progress Note Progress Note: Patient's preliminary urine culture reveals greater than 100,000 Proteus Mirabilis. Patient was started on Keflex. Final results pending. No change in treatment at this time. Course/Dx - Course Course Of Treatment: Pt. presenting for abd. cramping, N/V, and chills. She is afebrile with stable vital signs. Labs and urine ordered. Pt. was given zofran and IV fluids started. CBC shows a leukocytosis of 15. CMP shows mildly elevated AST and ALT that are trending downward from last CMP. On re-exam pt. states that zofran did not help. Will try oral phenergan and give IV toradol for pain. After medicaiton pt. is sleeping comfortably and she states that her abd. pain has greatly improved. She was examined by Dr. Schroeder as well. He palpated her abd. and she had significant diffuse abd. tenderness, will obtain CT scan. U/A is nitrate positive with large WBC, will give a dose of IV rocephin. Pt.'s friend has states that he is concerned with pt.'s living situation. He states she has use narcotic within the last couple of weeks. He states pt. has friends staying with her that are daily drug users. Social service consult ordered. Pt.'s IV blew when contrast was started. It took numerous attempts to obtain IV access initially, will scan without contrast. CT scan shows bilateral nonobstructing renal calculi otherwise unremarkable, reading per radiology. Pt. was able to tolerate PO fluids. On re-exam she is resting comforting. Based on her prior urine cultures and susceptibility will treat with Keflex. Please see drug abuse social worker's note as well. Advised pt. to call PCP today for a close f.u apt. Tylenol or motrin for pain as directed. To return to ER for increased pain, fever, vomiting. - Diagnoses Provider Diagnoses: UTI (urinary tract infection) Discharge - Sign-Out/Discharge Documenting (check all that apply): Post-Discharge Follow Up - Discharge Plan Condition: Good Disposition: HOME Prescriptions: Cephalexin CAP* [Keflex CAP*] 500 mg PO BID #20 cap Ondansetron TAB* [Zofran 4 MG Tab*] 4 mg PO Q6H PRN #12 tab PRN Reason: Nausea Patient Education Materials: Urinary Tract Infection in Women (ED) Referrals: Ernst Morton MD [Primary Care Provider] - Additional Instructions: Call your PCP today for a close follow up appointment Take antibiotic as directed Increase fluids Tylenol or Motrin for pain as directed Return to ER for increased pain, fever, vomiting or if concerned - Billing Disposition and Condition Condition: GOOD Disposition: Home
--- NOTE | 2018-04-20 16:26 | ED ---
Progress - Progress Note Progress Note: Patient's preliminary urine culture reveals greater than 100,000 Proteus Mirabilis. Patient was started on Keflex. Final results pending. No change in treatment at this time. Update: Patient's final culture reveals sensitivity to Keflex. No change in treatment at this time. Course/Dx - Course Course Of Treatment: Pt. presenting for abd. cramping, N/V, and chills. She is afebrile with stable vital signs. Labs and urine ordered. Pt. was given zofran and IV fluids started. CBC shows a leukocytosis of 15. CMP shows mildly elevated AST and ALT that are trending downward from last CMP. On re-exam pt. states that zofran did not help. Will try oral phenergan and give IV toradol for pain. After medicaiton pt. is sleeping comfortably and she states that her abd. pain has greatly improved. She was examined by Dr. Schroeder as well. He palpated her abd. and she had significant diffuse abd. tenderness, will obtain CT scan. U/A is nitrate positive with large WBC, will give a dose of IV rocephin. Pt.'s friend has states that he is concerned with pt.'s living situation. He states she has use narcotic within the last couple of weeks. He states pt. has friends staying with her that are daily drug users. Social service consult ordered. Pt.'s IV blew when contrast was started. It took numerous attempts to obtain IV access initially, will scan without contrast. CT scan shows bilateral nonobstructing renal calculi otherwise unremarkable, reading per radiology. Pt. was able to tolerate PO fluids. On re-exam she is resting comforting. Based on her prior urine cultures and susceptibility will treat with Keflex. Please see social media marketing analyst's note as well. Advised pt. to call PCP today for a close f.u apt. Tylenol or motrin for pain as directed. To return to ER for increased pain, fever, vomiting. - Diagnoses Provider Diagnoses: UTI (urinary tract infection) Discharge - Sign-Out/Discharge Documenting (check all that apply): Post-Discharge Follow Up - Discharge Plan Condition: Good Disposition: HOME Prescriptions: Cephalexin CAP* [Keflex CAP*] 500 mg PO BID #20 cap Ondansetron TAB* [Zofran 4 MG Tab*] 4 mg PO Q6H PRN #12 tab PRN Reason: Nausea Patient Education Materials: Urinary Tract Infection in Women (ED) Referrals: Ernst Morton MD [Primary Care Provider] - Additional Instructions: Call your PCP today for a close follow up appointment Take antibiotic as directed Increase fluids Tylenol or Motrin for pain as directed Return to ER for increased pain, fever, vomiting or if concerned - Billing Disposition and Condition Condition: GOOD Disposition: Home
== END 2018-04-16 12:14 | disposition home or self-care (01) ==
LOC: ED 06:51
DX: N39.0 Urinary tract infection, site not specified (principal); R11.2 Nausea with vomiting, unspecified; F17.210 Nicotine dependence, cigarettes, uncomplicated
CPT/HCPCS: 36415; 74176; 80053; 81003; 81015; 83690; 83735; 84702; 85025; 87077; 87086; 87184; 87186; 96361; 96374; 99283; A9270-GY; J0696; J1885

== ENCOUNTER 2018-06-03 17:02 | Observation (INO) | payer OTHER ==
[2018-06-03] MEDS ORDERED: Ketorolac INJ* 30 MG/ML 1 ML VIAL IV PUSH ONE (17:29)
[2018-06-03] MEDS ORDERED: Ondansetron INJ* 2 MG/ML VIAL IV ONE (17:29)
[2018-06-03] MEDS ORDERED: NS 0.9% 1000 ML* 1,000 ML IV ONE (17:30)
--- NOTE | 2018-06-03 17:39 | ED ---
Abdominal Pain/Female - HPI Summary HPI Summary: [facility]. Pt is a 32 y/o F c/o abdominal pain located diffusely in the LLQ onset 2 hours ago. Pain is rated a 10/10 and she describes it as cramps. Assoc Sx: Abd pain, chills, diaphoresis, pale skin. Denies: gas, fever. She says that she was doing laundry when the pain onset. Allev: Factors: None. PMHx: cervical CA, MRSA, kidney stones SHx: smokes 1/2 ppd, has not "shot anything up" for 1 1/2 years. PSHx: no abd surgeries. - History of Current Complaint Chief Complaint: EDAbdPain Stated Complaint: ABD PAIN Time Seen by Provider: 06/03/18 17:26 Hx Obtained From: Patient Hx Last Menstrual Period: end january Onset/Duration: Sudden Onset, Lasting Hours, Still Present Timing: Constant Severity Initially: Severe Severity Currently: Severe Pain Intensity: 10 Pain Scale Used: 0-10 Numeric Location: Discrete At: LLQ Character: Cramping Alleviating Factor(s): Nothing Associated Signs and Symptoms: Positive: Diaphoresis Allergies/Adverse Reactions: Allergies Allergy/AdvReac Type Severity Reaction Status Date / Time latex Allergy Mild Rash Verified 06/03/18 17:15 shellfish derived Allergy Swelling Verified 06/03/18 17:15 Of Face,Lips,& Throat sulfamethoxazole Allergy BODY IS Verified 06/03/18 17:15 [From Bactrim] IMMUNED TO IT trimethoprim [From Bactrim] Allergy BODY IS Verified 06/03/18 17:15 IMMUNED TO IT PMH/Surg Hx/FS Hx/Imm Hx Endocrine/Hematology History: Reports: Hx Thyroid Disease - She is not on medications for this because she does not like the feel. Denies: Hx Anticoagulant Therapy, Hx Blood Disorders, Hx Diabetes Cardiovascular History: Denies: Hx Congestive Heart Failure, Hx Deep Vein Thrombosis, Hx Hypertension , Hx Myocardial Infarction, Hx Pacemaker/ICD Respiratory History: Reports: Hx Asthma, Other Respiratory Problems/Disorders - Hx LT LUNG COLLAPSE/FLUID Denies: Hx Chronic Obstructive Pulmonary Disease (COPD), Hx Lung Cancer, Hx Pneumonia, Hx Pulmonary Embolism GI History: Reports: Hx Crohn's Disease, Hx Gastroesophageal Reflux Disease, Other GI Disorders - GERD Denies: Hx Gall Bladder Disease, Hx Gastrointestinal Bleed, Hx Ulcer, Hx Urosepsis History: Reports: Hx Kidney Stones, Hx Renal Disease - STONES Denies: Hx Dialysis Musculoskeletal History: Reports: Other Musculoskeletal History - CHRONIC BACK PAIN,SCOLOSIS BORN W/L3-S1 FUSION Sensory History: Reports: Hx Contacts or Glasses Denies: Hx Hearing Aid Opthamlomology History: Reports: Hx Contacts or Glasses Neurological History: Reports: Hx Headaches, Hx Migraine Denies: Hx Dementia, Hx Seizures, Hx Transient Ischemic Attacks (TIA) Psychiatric History: Reports: Hx Anxiety, 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 extra congenital breast removed. removal of cervical cancer 6 year. lumbar fusion (FOR SCOLIOSIS). collapsed lung 2013. 06/2017 FRACTURED T11 Hx Anesthesia Reactions: No Infectious Disease History: Yes Infectious Disease History: Reports: Hx Hepatitis - hep c gone, Hx of Known/ Suspected MRSA Denies: Hx Clostridium Difficile, Hx Human Immunodeficiency Virus (HIV), Hx Shingles, Hx Tuberculosis, Traveled Outside the [place] in Last 30 Days - Family History Known Family History: Positive: Diabetes, Other - She grew up in foster care-- has limited information regarding her fmhx Negative: Cardiac Disease, Hypertension - Social History Occupation: Unemployed Lives: Alone Alcohol Use: None Alcohol Amount: sober since 01/19/14 Hx Substance Use: No Substance Use Type: Reports: None Substance Use Comment - Amount & Last Used: Hx of IV heroine. Last use 10/18/16 Hx Tobacco Use: Yes Smoking Status (MU): Light Every Day Tobacco Smoker Type: Cigarettes Amount Used/How Often: 1/2 PPD Length of Time of Smoking/Using Tobacco: 15 years Have You Smoked in the Last Year: Yes Review of Systems Positive: Chills, Skin Diaphoresis. Negative: Fever Positive: Abdominal Pain, Other - NEG: Gas Positive: Other - POS: Pale skin All Other Systems Reviewed And Are Negative: Yes Physical Exam - Summary Physical Exam Summary: GENERAL: Patient is a well developed and nourished F who appears uncomfortable 2/2 pain Patient is not in any acute respiratory distress. HEAD AND FACE: Normocephalic EYES: PERRLA, EOMI x 2. EARS: Hearing grossly intact. MOUTH: Oropharynx within normal limits. NECK: Supple, trachea is midline, no adenopathy, no JVD, no carotid bruit. CHEST: Symmetric, no tenderness at palpation LUNGS: Clear to auscultation bilaterally. No wheezing or crackles. CVS: Regular rate and rhythm, S1 and S2 present, no murmurs or gallops appreciated. ABDOMEN: TTP LLQ. Bowel sounds are normal. No abdominal abnormal pulsations. EXTREMITIES: Full ROM in all major joints, no edema, no cyanosis or clubbing. NEURO: Alert and oriented x 3. No acute neurological deficits. Speech is normal and follows commands. SKIN: Dry and warm Triage Information Reviewed: Yes Vital Signs On Initial Exam: Initial Vitals Temp Pulse Resp BP Pulse Ox 97.4 F 61 18 132/93 96 06/03/18 17:09 06/03/18 17:09 06/03/18 17:09 06/03/18 17:09 06/03/18 17:09 Vital Signs Reviewed: Yes Diagnostics - Vital Signs Vital Signs Temp Pulse Resp BP Pulse Ox 06/03/18 17:09 97.4 F 61 18 132/93 96 - Laboratory Result Diagrams: 06/03/18 18:21 06/03/18 18:21 Lab Statement: Any lab studies that have been ordered have been reviewed, and results considered in the medical decision making process. - CT A/P CT Interpretation: Positive (See Comments) - IMPRESSION: There is a 7 mm left ureteropelvic junction calculus with ipsilateral moderate hydronephrosis and delayed left-sided excretion. Additional nonobstructing calculi are also seen. CT Interpretation Completed By: Radiologist - Report has been reviewed by provider. Abdominal Pain Fem Course/Dx - Course Course Of Treatment: 32-year-old female who presents to the emergency room with an acute onset of left lower quadrant pain. Her workup is remarkable for leukocytosis with left shift with a white count of 18, CT scan of the abdomen and pelvis was obtained which shows a 7 mm stone at the UPJ with associated moderate left hydronephrosis. The UA is consistent with a urinary tract infection. I discussed the results with the patient Patient given IV fluids, IV ceftriaxone, pain medicine. I consulted Dr. Abarca of Urology who reviewed the CT scan and labs with plan to emergently take the patient to the OR and to admit to the hospitalist. Patient accepted by hospitalist - Diagnoses Provider Diagnoses: Kidney stones, UTI (urinary tract infection) Discharge - Sign-Out/Discharge Documenting (check all that apply): Patient Departure - Discharge Plan Condition: Stable Disposition: ADMITTED TO [facility] Patient Education Materials: Kidney Stones (ED) Referrals: Ernst Morton MD [Primary Care Provider] - - Billing Disposition and Condition Condition: STABLE Disposition: Admitted to [facility]
[2018-06-03 18:32] LABS: ABS Basophils 0 10^3/ul (0-0.2); ABS Eosinophils 0.1 10^3/ul (0-0.6); ABS Lymphocytes 1.9 10^3/ul (1.0-4.8); ABS Monocytes 1.3 10^3/ul (0-0.8); ABS Nucleated RBC 0 10^3/ul; Eosinophil % 0.6 % (0-6); Hematocrit 47 % (35-47); Hemoglobin 15.8 g/dl (12.0-16.0); Lymphocyte % 10.6 % (25-47); Mean Corpuscular HGB Conc 34 g/dl (31-36); Mean Corpuscular Hemoglobin 32 pg (27-31); Mean Corpuscular Volume 95 fL (80-97); Mean Platelet Volume 8.8 um3 (7.4-10.4); Nucleated Red Blood Cells % 0; Platelet Count 176 10^3/ul (150-450); Red Blood Count 4.99 10^6/ul (4.00-5.40); Red Cell Distribution Width 15 % (10.5-15); White Blood Count 18.3 10^3/ul (3.5-10.8)
[2018-06-03 18:52] LABS: EGFR Non-African American 79.1 (>60)
[2018-06-03] MEDS ORDERED: Iohexol 300* (CONTRAST) 10 ML SDV IV ONE (18:58)
[2018-06-03] MEDS ORDERED: Metoclopramide IV* 5 MG/ML 2 ML VIAL ONE (19:03)
[2018-06-03] MEDS ORDERED: Metoclopramide IV* 5 MG/ML 2 ML VIAL IV ONE (19:42)
--- NOTE | 2018-06-03 20:34 | RAD ---
CLINICAL HISTORY: Left lower quadrant pain COMPARISON: Multiple prior CT examinations, most recently dated July 27, 2017 TECHNIQUE: Contrast enhanced CT examination of the abdomen and pelvis from the lung bases through the initial tuberosities. The patient received 79 mL Omnipaque 300 intravenously prior to imaging.The patient received oral contrast as well prior to imaging. FINDINGS: Unless otherwise specified comparisons below reference the July 27, 2017 CT examination. VISUALIZED LUNG BASES: The visualized lung bases are grossly clear. There is no pleural effusion. ABDOMEN AND PELVIS: The liver, spleen, pancreas and adrenal glands are grossly normal in appearance. The gallbladder is normal. At the lower pole the right kidney there is a nonobstructive punctate calcification. At the mid-level right kidney there is a 7 mm calcification that is not changed since the previous CT examination. At the left ureteropelvic junction there is a calcification measuring 7 mm in greatest cephalocaudal dimension (coronal image 56 and axial image 38). There is a moderate degree of left-sided hydronephrosis. On the delayed phase imaging there is delayed excretion in the left kidney relative to the right. Evaluation of the gastrointestinal tract is limited in the absence of oral contrast. The small and large bowel are not distended. The patient's normal appendix is identified in the right lower quadrant with gas in the lumen (coronal image 48). There is no gross retroperitoneal or mesenteric lymphadenopathy. The pelvic viscera is normal in appearance. The abdominal aorta and iliac arteries are normal in course and diameter. There is stable mild vertebral body height loss at T11 similar in appearance to the previous CT examination. IMPRESSION: There is a 7 mm left ureteropelvic junction calculus with ipsilateral moderate hydronephrosis and delayed left-sided excretion. Additional nonobstructing calculi are also seen.
[2018-06-03 20:55] LABS: Urine Appearance Cloudy; Urine Blood 1+ (Negative); Urine Color Yellow; Urine Ketones Negative (Negative); Urine Protein Negative (Negative); Urine Red Blood Cell Trace(0-2/hpf) (Absent); Urine Specific Gravity 1.032 (1.010-1.030); Urine Urobilinogen Negative (Negative); Urine White Blood Cell 3+(>20/hpf) (Absent)
[2018-06-03] MEDS ORDERED: cefTRIAXone(*) 1 GM in NS 0.9% 50 ML* 50 ML IVPB ONE (21:04)
[2018-06-03 21:54] LABS: INR 0.9 (0.77-1.02)
[2018-06-03] MEDS ORDERED: Docusate CAP* 100 MG PO PRN (22:02)
[2018-06-03] MEDS ORDERED: Senna TAB PO PRN (22:02)
[2018-06-03] MEDS ORDERED: QUEtiapine TAB* 100 MG PO PRN (22:04)
[2018-06-03] MEDS ORDERED: Iohexol 180 (CONTRAST) 10 ML SDV IV ONE (22:40)
[2018-06-03] MEDS ORDERED: Midazolam* 1 MG/ML 2 ML VIAL (2 MG) ONE (22:50)
[2018-06-03] MEDS ORDERED: fentaNYL* 50 MCG/ML 2 ML VIAL (100 MCG VIAL) ONE ×2 (22:50→23:53)
[2018-06-03] MEDS ORDERED: Propofol* 10 MG/ML 20 ML BTL IV PUSH ONE (23:01)
[2018-06-03] MEDS ORDERED: HYDROmorphone INJ* 0.5 MG/0.5 ML SYRINGE IV PRN (23:28)
[2018-06-03] MEDS ORDERED: oxyCODONE TAB* 5 MG TAB PO PRN (23:28)
[2018-06-03] MEDS ORDERED: Ondansetron INJ* 2 MG/ML VIAL IV PRN (23:28)
[2018-06-03] MEDS ORDERED: fentaNYL* 50 MCG/ML 2 ML VIAL (100 MCG VIAL) IV PRN (23:28)
[2018-06-03] MEDS ORDERED: Naloxone* 0.4 MG/ML 1 ML VIAL IV PRN (23:28)
[2018-06-03] MEDS ORDERED: NS 0.9% 1000 ML* 1,000 ML IV SCH (23:30)
[2018-06-04] MEDS ORDERED: Acetaminophen TAB* 325 MG ONE (00:36)
[2018-06-04] MEDS: Acetaminophen TAB* 325 MG PO PRN ×2 (00:38→05:03)
[2018-06-04] MEDS ORDERED: Ondansetron TAB* 4 MG PO PRN (01:21)
--- NOTE | 2018-06-04 03:45 | HP ---
CC: Ernst Morton MD * HISTORY AND PHYSICAL: DATE OF ADMISSION: 06/03/18 TIME OF EVALUATION: 0. PRIMARY CARE PHYSICIAN: Ernst Morton MD CHIEF COMPLAINT: Left-sided abdominal pain. HISTORY OF PRESENT ILLNESS: This is a 32-year-old female with a past medical history of nephrolithiasis, polypharmacy, who presents to the emergency room with acute onset of left-sided abdominal pain. She states it came on all of a sudden. She began having nausea, vomiting, and chills and her boyfriend brought her here for further evaluation. She states she has a history of kidney stones in the past but they usually resolved on their own and never to this severity. She denies any urinary symptoms or vaginal symptoms. She does have chronic back pain. Her back pain is not worse than it normally is. No chest pain, no shortness of breath. No diarrhea, no constipation, no fevers or chills. Otherwise, review of systems is negative. In the emergency room, the patient had labs, imaging. She was found to have a 7 mm UPJ calculus with moderate hydronephrosis on the left. Dr. Abarca was called. He is planning to take her to the OR this evening for stent placement. In the emergency room, the patient was given ceftriaxone, Toradol, Reglan, Zofran, and a liter of fluid. PAST MEDICAL HISTORY: 1. History of depression. 2. PTSD. 3. History of hypothyroidism, but not on medications because she does not like how they feel. 4. History of asthma. 5. History of polysubstance abuse. 6. History of IV drug use. She states she has not used it in several years. 7. History of GERD. 8. Scoliosis. 9. Chronic back pain. 10. Anxiety. 11. Eating disorder. 12. Neuropathy. 13. History of nephrolithiasis. MEDICATIONS: The patient is not sure all of her meds. She was able to tell me , she takes; 1. Gabapentin 900 mg 4 times a day. 2. Baclofen 3 times a day. 3. Nexium. 4. Seroquel 100 mg at bedtime. Otherwise, obtain from med rec. ALLERGIES: LATEX, SHELLFISH, SULFAMETHOXAZOLE, TRIMETHOPRIM. FAMILY HISTORY: Reviewed and noncontributory. SOCIAL HISTORY: The patient is here with her boyfriend, Toney, who is her healthcare proxy. She smokes to half a pack per day for the past 15 years. No alcohol or recent illicit drug use per the patient. Code status, full code. REVIEW OF SYSTEMS: A 14-point review of systems as mentioned in the HPI, otherwise negative. PHYSICAL EXAMINATION GENERAL: Some mild discomfort. Her boyfriend is at the bedside. VITAL SIGNS: Temp 97.4, pulse rate 82, respiratory rate 24, oxygen saturation 98% on room air, blood pressure 122/77. HEENT: Head, normocephalic. Pupils equal and reactive. Anicteric. Oropharynx : Mucous membranes moist. NECK: Supple. No lymphadenopathy. RESPIRATORY: Clear to auscultation. No wheezes, rhonchi, or rales. CARDIAC: Regular rate and rhythm. No murmurs, rubs, or gallops. ABDOMEN: Positive bowel sounds. Soft, nondistended. She does have left-sided pain with guarding. EXTREMITIES: No clubbing, cyanosis, or edema. +1 DPs. NEUROLOGIC: Alert and oriented x3. No gross focal neurologic deficits. LABORATORY DATA: White count 8.3, hemoglobin 15.8, hematocrit 47, platelets 176. INR 0.9. Sodium 139, potassium 3.5, chloride 104, bicarb 25. BUN 19 and creatinine 0.84. Glucose 103. Beta hCG is less than 6. Lipase 13. Urinalysis shows +1 blood, positive nitrites, leukocytes. Tox screen is positive for cannabinoids, negative for alcohol. Radiographic data: Shows CT scan of abdomen and pelvis shows 7 mm left UP junction calculus with ipsilateral moderate hydronephrosis, delayed left-sided excretion, additional nonobstructing calculi also seen. ASSESSMENT: This is a 32-year-old female with a past medical history of nephrolithiasis, who presents to the emergency room with acute left-sided abdominal pain, found to have a UPJ calculus with hydronephrosis. 1. Left-sided abdominal pain. Assessment: As mentioned, the patient with 7 mm left UPJ calculus with moderate hydronephrosis. Plan: Dr. Abarca took patient to OR this evening and stent was placed. He recommended continuing Ceftriaxone and then transitioning to PO Ciprofloxacin at discharge. Continue IVFs. KUB in AM to follow up. Dr. Abarca is going to leave discharge and follow up instructions. Follow up urine and blood cultures. 2. Chronic medical problems. Chronic pain. We will continue the patient's gabapentin, baclofen. 3. Gastroesophageal reflux disease. We will place the patient on omeprazole and place on Nexium. We will have to obtain her med rec to continue her other medications. Will need to obtain med rec to order the remaining of her medications. 4. DVT Prophylaxis . The patient scores 0. We will encourage ambulation. 5. FEN. The patient is n.p.o. We will resume a regular diet when she is postop. 6. Code status: Full code. PATIENT TIME: Greater than 35 minutes were spent doing the history and physical , more than half the time was spent in direct patient contact. [id number]/[facility] #: [id number] LEVY
[2018-06-04] MEDS ORDERED: Ketorolac INJ* 15 MG/ML 1 ML VIAL ONE (05:16)
[2018-06-04] MEDS: Ketorolac INJ* 15 MG/ML 1 ML VIAL IV PUSH PRN ×3 (05:22→19:55)
[2018-06-04] MEDS ORDERED: Heparin VIAL(*) 5000 UNITS/ML VIAL (FIVE THOUSAND) SUBCUT SCH (06:00)
[2018-06-04] MEDS ORDERED: Omeprazole CAP* 20 MG PO SCH (06:00)
[2018-06-04 06:42] LABS: ABS Basophils 0 10^3/ul (0-0.2); ABS Eosinophils 0 10^3/ul (0-0.6); ABS Lymphocytes 1.2 10^3/ul (1.0-4.8); ABS Monocytes 1.4 10^3/ul (0-0.8); ABS Neutrophils 16.3 10^3/ul (1.5-7.7); ABS Nucleated RBC 0 10^3/ul; Eosinophil % 0 % (0-6); Hematocrit 38 % (35-47); Hemoglobin 12.8 g/dl (12.0-16.0); Lymphocyte % 6.2 % (25-47); Mean Corpuscular HGB Conc 34 g/dl (31-36); Mean Corpuscular Hemoglobin 32 pg (27-31); Mean Corpuscular Volume 93 fL (80-97); Mean Platelet Volume 9.4 um3 (7.4-10.4); Nucleated Red Blood Cells % 0; Platelet Count 155 10^3/ul (150-450); Red Blood Count 4.06 10^6/ul (4.00-5.40); Red Cell Distribution Width 14 % (10.5-15); White Blood Count 18.9 10^3/ul (3.5-10.8)
[2018-06-04] MEDS ORDERED: Albuterol HFA INHALER* 8 gm MDI INH PRN (07:00)
[2018-06-04] MEDS: Gabapentin CAP(*) 300 MG PO SCH ×3 (07:30→17:00)
[2018-06-04] MEDS ORDERED: Mouth Piece, Nicotine* 1 EACH CARTRIDGE INH PRN (07:56)
[2018-06-04] MEDS ORDERED: LORazepam INJ* 2 MG/ML 1 ML VIAL IV PUSH PRN (07:56)
[2018-06-04] MEDS ORDERED: LORazepam INJ* 2 MG/ML 1 ML VIAL ONE (08:40)
[2018-06-04] MEDS: Phenazopyridine TAB* 100 MG PO SCH ×2 (08:45→13:36)
[2018-06-04] MEDS: Potassium Chloride LIQUID* 20 MEQ PACKET PO ONE ×2 (08:46→10:50)
[2018-06-04] MEDS: Nicotine Inhaler* 10 MG AMP INH PRN ×2 (08:53→17:03)
[2018-06-04] MEDS ORDERED: Baclofen TAB* 20 MG PO SCH ×3 (09:00→14:00)
[2018-06-04] MEDS ORDERED: Potassium Chlor TAB* 10 MEQ TAB.ER PO SCH (09:00)
[2018-06-04] MEDS ORDERED: cefTRIAXone(*) 1 GM in NS 0.9% 50 ML* 50 ML IVPB SCH (09:00)
[2018-06-04] MEDS ORDERED: Buprenorphine/Naloxone 8-2 MG SL TAB* 1 TAB SL SCH ×2 (09:00→14:00)
[2018-06-04] MEDS ORDERED: Potassium Chlor TAB* 20 MEQ TAB.ER PO SCH (11:00)
--- NOTE | 2018-06-04 11:34 | RAD ---
Indication: Left renal calculus. Single view of the abdomen demonstrates left ureteral stent in place. Calcification overlying the left kidney. When compared to previous exam of 118 the ureteral calculi is not definitively identified. IMPRESSION: Left ureteral stent in place. Ureteral calculi is not definitively identified. Left renal calculi is noted however.
[2018-06-04] MEDS ORDERED: Baclofen TAB* 20 MG ONE (13:46)
[2018-06-04 15:50] VITALS: BP 110/68
--- NOTE | 2018-06-04 16:01 | RAD ---
CPT II Codes: G9500 INDICATION: Left ureteropelvic junction stone TECHNIQUE: Intraoperative fluoroscopy was provided during lithotripsy and left ureteral stent placement. FINDINGS: 8 spot films depict retrograde pyelography and left ureteral stent placement and anatomic position. There is a moderate degree of hydronephrosis as was seen on the prior CT. Fluoroscopy time: 10 seconds IMPRESSION: As above.
--- NOTE | 2018-06-04 22:12 | OP ---
CC: Dr. Ernst Morton * DATE OF OPERATION: 06/03/18 - ROOM #[id number] DATE OF : 87 SURGEON: Oswald Abarca MD ANESTHESIOLOGIST: Maurice Moore MD ANESTHESIA: General. PRE-OP DIAGNOSES: 1. Proximal left ureteral calculus (7 mm). 2. Urinary tract infection. POST-OP DIAGNOSES: 1. Proximal left ureteral calculus (7 mm). 2. Urinary tract infection. OPERATIVE PROCEDURE: 1. Cystoscopy. 2. Placement of left ureteral stent (6-Marshallese). INDICATIONS: Ms. Rubio is a 32-year-old white female who presented to the emergency room this evening with symptoms of a sudden onset of left renal colic. She had no fever or chills. CT of the abdomen and pelvis with IV contrast showed a nonobstructing calculus in the right kidney and a 7-mm calculus just distal to the left ureteropelvic junction associated with mild-to- moderate left hydronephrosis. Her urinalysis was positive for infection. CBC showed an elevated white count of 18,000 and 80% neutrophils. Her vital signs were normal and she was not febrile. Because of the above history and findings and the presence of infected urine with an obstructed kidney and to avoid her going into sepsis, the patient is taken urgently to the operating room for placement of left ureteral stent in preparation for definitive treatment of the stone. PATHOLOGY AT CYSTOSCOPY: The bladder mucosa looked normal. There were no suspicious bladder lesions seen. There were no changes to suggest cystitis. At fluoroscopy, there was residual contrast in the left kidney from the recent CT scan. No abnormal calcifications were noted in the ureter. There was no resistance to the introduction of the guidewire or the stent. DESCRIPTION OF PROCEDURE: After successful general anesthesia, the patient was placed in the lithotomy position and was prepped and draped for cystoscopy. Cystoscopy was performed and the bladder was inspected and the above findings were noted. A flexible-tipped hybrid wire was then introduced into the left orifice and passed without difficulty into the renal pelvis. An open-ended catheter was fed on top of the guidewire and positioned in the renal pelvis. The renal pelvis was drained. The urine looked concentrated but it did not look grossly infected. The guidewire was then reintroduced. A size 6-Marshallese stent was then placed with the proximal end coiling in the renal pelvis and the distal end coiling inside the bladder. The patient tolerated the procedure well and left the operating room in good condition. The plan is to keep the patient overnight for observation for possible development of sepsis. A KUB will be obtained in the morning to determine the position of the stone in preparation for definitive treatment of the stone at a later date. [id number]/[facility] #: [id number] MTDD
--- NOTE | 2018-06-06 01:57 | DS ---
DISCHARGE SUMMARY: DATE OF ADMISSION: 06/04/18 DATE OF DISCHARGE: 06/04/18 PRIMARY CARE PROVIDER: Dr. Ernst Morton. MY ATTENDING WHILE IN THE HOSPITAL: Dr. Holly Marr.* (DICTATED BY RAFFY CASPER) CONSULTING UROLOGIST: Dr. Oswald Abarca of Urology. PRIMARY DISCHARGE DIAGNOSES: 1. Pyelonephritis. 2. Left-sided nephrolithiasis with hydronephrosis. SECONDARY DISCHARGE DIAGNOSES: 1. Depression. 2. Posttraumatic stress disorder. 3. Hypothyroidism. 4. Asthma. 5. Polysubstance abuse. 6. Gastroesophageal reflux disease. 7. Scoliosis. 8. Chronic back pain. 9. Anxiety. 10. Neuropathy. STUDIES DONE WHILE IN THE HOSPITAL: Abdomen and pelvis CT from 06/03/18 read as 7- mm left ureteropelvic junction calculus with ipsilateral moderate hydronephrosis and delayed left-sided excretion, additional nonobstructing calculi are also seen. Retrograde pyelogram from 06/03/18 read as intraoperative fluoroscopy. Abdominal x- ray from 06/04/18 shows left ureteral stent in place, ureteral calculi not definitively identified, left renal calculi noted. MEDICATIONS AT DISCHARGE: 1. Albuterol inhaler 2 puffs inhalation q.6 hours as needed. 2. Suboxone 8/2 one tab sublingual daily. 3. Baclofen 20 mg p.o. t.i.d. 4. Potassium chloride 10 mEq p.o. daily. 5. Gabapentin 900 mg p.o. 4 times a daily. 6. Buprenorphine-naloxone 1 tab sublingual b.i.d. 7. Zofran 4 mg p.o. q.6 hours as needed. 8. Tylenol 650 mg p.o. q.4-6 hours as needed. 9. Cefdinir 300 mg p.o. b.i.d. x26. 10. Zofran 4 mg p.o. q.6 hours as needed. 11. Pyridium 200 mg p.o. t.i.d. x5. 12. Potassium chloride 10 mEq p.o. daily. 13. Quetiapine 100 mg p.o. bedtime as needed. HOSPITAL COURSE: This is a brief summary of the patient's presentation. For more details, please see history and physical from Dr. Michelle Stark on . In brief, the patient is a 32-year-old female with a complex past medical history significant for the above, presents to the emergency department with acute onset of left-sided abdominal pain associated with nausea, vomiting, and chills. The patient had kidney stones, but never this severity. The patient had no urinary or vaginal symptoms. The patient has no change in her chronic back pain. The patient had studies done as above, identifying a ureteral calculus. The patient's white blood cell count was initially 18.3 and increased to 18.9 on 06/04/18. The patient had low potassium at 3.1 on . The patient had no other significant laboratory abnormalities. The patient 's urine toxicology showed positive for cannabinoids, negative HIV serology, positive nitrite, positive leukocyte esterase, positive blood, positive bacteria. The patient was taken to the operating room and had a left-sided ureteral stent placed with Dr. Oswald Abarca of Urology without complication. The patient was kept overnight. The patient was initially febrile with a maximum temperature of 101.6 at 1 a.m. on 06/04/18 with resolution of her fevers after that. The patient was initially tachypneic, but this also resolved. The patient was also initially tachycardic around the same time her fever peaked. The patient was hypotensive in the morning of 06/04/18, this resolved with fluid. The patient on 06/04/18 was very upset about being in the hospital stating her main goal was to not be in the hospital anymore. She was advised that if she had symptoms of possible bacteremia and if she had bacteremia along her course, IV antibiotics would be recommended. The patient states that she will stay until her blood culture came back, required benzodiazepines for her anxiety. The patient had no acute events during the day on 06/04/18. The patient's blood cultures came back negative in the afternoon of 06/04/18. The patient's urine culture came back positive for Proteus mirabilis/penneri and Escherichia coli. Based on local sensitivity data , the patient was transitioned from ceftriaxone to cefdinir and discharged from the hospital in the evening of 06/04/18 to follow up with her primary care provider within 1 week for general medical management and Dr. Abarca within 1 week for followup of definitive treatment of her kidney stones. PHYSICAL EXAM ON THE DAY OF DISCHARGE: General: The patient is a 32-year-old female, who appears stated age, sitting comfortably in bed, in no acute distress. Vital Signs: At the time of evaluation, temperature 98.4, pulse rate 78, respiratory rate 16, oxygen saturation 99% on room air, blood pressure 110/ 68. HEENT: Head, normocephalic, atraumatic. Sclerae anicteric. No conjunctival injection. Nasal mucosa moist. Oral mucosa moist. No pharyngeal erythema, discharge, or exudate. Neck: Supple, nontender. No lymphadenopathy. No carotid bruits auscultated. No JVD. Cardiac: Regular rate and rhythm. No clicks, murmurs, gallops, or rubs. Pulses 2+ in the bilateral dorsalis pedis, posterior tibialis, and radial areas. Respiratory: Clear to auscultation bilaterally. No wheezes, rales, or rhonchi. Good air exchange bilaterally. Abdomen: Tender to palpation over the left side. No rebound or guarding. No hepatosplenomegaly. No abdominal bruits auscultated. Bowel sounds present. Normoactive in all 4 quadrants. Genitourinary: Positive left-sided CVA tenderness and suprapubic tenderness. Skin: Clean, dry , intact. No rash. Neuro: Cranial nerve II through XII intact. No focal deficits. Alert and oriented x3. Psychiatric: Very anxious, consistently crying, coping poorly with being in the hospital. DIAGNOSTIC STUDIES/LAB DATA: Laboratory data on day of discharge: WBC count 18.9, hemoglobin 12.8, hematocrit 38, platelet count 155. Sodium 138, potassium 3.1, chloride 104, carbon dioxide 27, anion gap 7, BUN 16, creatinine 0.71, glucose 109, calcium 8.1. DISCHARGE PLAN: The patient will be discharged to home with cefdinir as above as well as her home pain medication regimen with additions as above. The patient is to follow up with primary care provider within 1 week for general medical management. The patient has been instructed to call the Urology office as soon as possible to arrange appointment for followup of definitive treatment of her kidney stone including possible need for a lithotripsy. The patient has been given Pyridium for a total of 5 more doses to control of her dysuria associated with treatment. The patient should return to the hospital for high fevers, chest pain, shortness of breath, syncope, or other alarming symptoms. The patient should engage in activity as tolerated, have a regular, unrestricted diet. TIME SPENT: Approximately 60 minutes were spent on this discharge, 30 of which were spent [id number] with the patient obtaining history and physical and discussing treatment plan. RAFFY CASPER [id number]/[facility] #: [id number] LEVY
== END 2018-06-04 20:22 | disposition home or self-care (01) ==
LOC: ED 17:02 → OR 22:31 → SSU 22:32 → UNDOADMOB 06-04 01:11 → UNDODISOB 06-04 20:22
PROVIDERS: ADMIT Pediatrics; ATTEND Urology
DX: N12 Tubulo-interstitial nephritis, not specified as acute or chronic (principal); N20.1 Calculus of ureter; N39.0 Urinary tract infection, site not specified; Z87.442 Personal history of urinary calculi; F43.10 Post-traumatic stress disorder, unspecified; E03.9 Hypothyroidism, unspecified; J45.909 Unspecified asthma, uncomplicated; F19.10 Other psychoactive substance abuse, uncomplicated; K21.9 Gastro-esophageal reflux disease without esophagitis; M41.9 Scoliosis, unspecified; M54.9 Dorsalgia, unspecified; G89.29 Other chronic pain; F41.9 Anxiety disorder, unspecified; F50.9 Eating disorder, unspecified; G62.9 Polyneuropathy, unspecified; F32.9 Major depressive disorder, single episode, unspecified; F17.210 Nicotine dependence, cigarettes, uncomplicated
CPT/HCPCS: 36415; 74018; 74177; 74420; 80048; 80053; 80307; 80320; 81003; 81015; 83605; 83690; 84702; 85025; 85610; 85730; 86140; 86703; 86850; 86900; 86901; 87040; 87077; 87086; 87184; 87186; 87641; 99284; A9270-GY; C1876; G0378; G0480; J0696; J1885; J2060; J2250; J2405; J2704; J2765; J3010; Q9967

== ENCOUNTER 2018-06-17 08:02 | Day surgery (SDC) | payer OTHER ==
[~2018-06-17 08:02] MED LIST changes: +Buffered Lidocaine 0.9% SYRIN* 5 ML/SYR SYRINGE INTRADERM ONE; +Dexamethasone IV* 4 MG/ML 1 ML (4 MG) IV SLOW PU ONE; +Famotidine IV* 10 MG/ML 2 ML (20 mg) IV ONE; -Ketorolac INJ* 60 MG/2 ML VIAL IM ONE
[2018-06-17] MEDS ORDERED: Dexamethasone IV* 4 MG/ML 1 ML (4 MG) ONE (08:40)
[2018-06-17] MEDS ORDERED: Famotidine IV* 10 MG/ML 2 ML (20 mg) ONE (08:40)
[2018-06-17] MEDS ORDERED: cefTRIAXone(*) 2 GM ADDV.VIAL IVPB ONE (08:40)
--- NOTE | 2018-06-17 08:51 | RAD ---
HISTORY: shockwave lithotripsy COMPARISONS: June 04, 2018 VIEWS: Frontal views of the abdomen. FINDINGS: BOWEL: There is a nonspecific bowel gas pattern, with nondilated small bowel gas noted. CALCULI: There is a 0.6 cm calculus of the left renal parenchyma shadow, stable. A left ureteral stent is noted. BONES AND SOFT TISSUES: There is a mild scoliotic curvature of the spine. There is a transitional last lumbar type vertebral body with pseudoarthrosis formation between the left transverse process and left sacral ala. OTHER FINDINGS: The lung bases are clear. There is no subphrenic gas. IMPRESSION: LEFT NEPHROLITHIASIS WITH LEFT URETERAL STENT
[2018-06-17] MEDS ORDERED: Levalbuterol 1.25MG/0.5ML NEB INH ONE (09:25)
[2018-06-17] MEDS ORDERED: Levalbuterol 0.63MG/3ML NEB* UNIT OF USE INH ONE (09:28)
[2018-06-17] MEDS ORDERED: Levalbuterol 1.25MG/0.5ML NEB ONE (09:31)
[2018-06-17] MEDS ORDERED: KETAMINE HCL* 50 MG/ML 10 ML VIAL ONE (09:31)
[2018-06-17] MEDS ORDERED: Midazolam* 1 MG/ML 2 ML VIAL (2 MG) ONE (09:32)
[2018-06-17] MEDS ORDERED: Propofol* 10 MG/ML 20 ML BTL IV PUSH ONE (09:32)
[2018-06-17] MEDS ORDERED: Naloxone* 0.4 MG/ML 1 ML VIAL IV PRN (10:28)
[2018-06-17] MEDS ORDERED: Ondansetron INJ* 2 MG/ML VIAL ONE (10:33)
[2018-06-17] MEDS ORDERED: Acetaminophen TAB* 325 MG PO PRN (10:37)
[2018-06-17] MEDS ORDERED: DiMENhydriNATE IV* 50 MG/ML VIAL IV PUSH PRN (10:37)
[2018-06-17 12:07] VITALS: BP 117/77
--- NOTE | 2018-06-17 17:44 | OP ---
CC: Ernst Morton MD* OPERATIVE REPORT: DATE OF OPERATION: 06/17/18 - [facility] DATE OF : 87 SURGEON: Oswald Abarca MD ANESTHESIOLOGIST: Dr. Olegario Winter ANESTHESIA: General. PRE-OP DIAGNOSES: 1. Left renal calculus (8 mm). 2. Status post placement left ureteral stent. POST-OP DIAGNOSES: 1. Left renal calculus (8 mm). 2. Status post placement left ureteral stent. OPERATIVE PROCEDURES: 1. Shockwave lithotripsy of left renal calculus. 2. Cystoscopy and removal of left ureteral stent. INDICATIONS FOR PROCEDURE: Ms. Rubio is a 32-year-old white female who presented to the emergency room on 06/04/18, with symptoms of left renal colic associated with urinary tract infection. She had urgent placement of a left ureteral stent. She was observed and treated with IV antibiotics. Her urine culture grew proteus and she was treated with appropriate antibiotics. She did well following the procedure. Postoperative KUB showed the calculus to have migrated into a mid upper pole marcela of the left kidney, the Lt ureteral stent in good position.. The patient is admitted for definitive treatment of the stone. PATHOLOGY: Preoperative KUB showed the left ureteral stent in good position. Radiopaque calculus measuring about 8 mm in size was noted in the mid to upper pole marcela of the left kidney. DESCRIPTION OF PROCEDURE: After successful general anesthesia, the patient was placed in the supine position on the shockwave lithotripsy table. The left renal calculus was visualized in both the PA and the oblique views and the position of the patient and of the generator were adjusted to have the stone in the focus of the shock waves. A total of 1,000 shocks were then delivered at a rate of 60 shocks per minute. A 2 minutes break was taken after the initial 300 shocks to decrease the risk of renal injury. After 1,000 shocks, there was very good fragmentation of the stone. With the good stone fragmentation, stent can be safely removed. The patient was placed in the frog leg position and was prepped and draped for cystoscopy. Cystoscopy was performed. The stent was pulled out intact. The patient tolerated the procedure well and left the operating room in good condition. [id number]/[facility] #: [id number] [facility]
== END 2018-06-17 12:08 | disposition home or self-care (01) ==
LOC: OR 08:02
PROVIDERS: ATTEND Urology
DX: N20.0 Calculus of kidney (principal); F11.21 Opioid dependence, in remission; F17.200 Nicotine dependence, unspecified, uncomplicated; J45.909 Unspecified asthma, uncomplicated; K21.9 Gastro-esophageal reflux disease without esophagitis; B19.20 Unspecified viral hepatitis C without hepatic coma
CPT/HCPCS: 74018; 81025; A9270-GY; J0696; J1100; J2250; J2405; J2704

== ENCOUNTER 2018-08-14 15:58 | Emergency (ER) | payer OTHER ==
[2018-08-14 16:07] VITALS: BP 115/75
== END 2018-08-14 18:05 | disposition home or self-care (01) ==
LOC: ED 15:58
DX: H53.9 Unspecified visual disturbance (principal); Z53.21 Procedure and treatment not carried out due to patient leaving prior to being seen by health care provider
CPT/HCPCS: 99282

== ENCOUNTER 2019-02-03 18:33 | Emergency (ER) | payer OTHER ==
[2019-02-03 18:51] VITALS: BP 95/51
--- NOTE | 2019-02-03 21:19 | UC ---
Neck Pain HPI - HPI Summary HPI Summary: ONSET OF POSTERIOR NECK PAIN SEVERAL DAYS AGO. NO TRAUMA OR INJURY. NO NUMBNESS OR TINGLING. - History of Current Complaint Chief Complaint: UCGeneralIllness Stated Complaint: NECK COMPLAINT Time Seen by Provider: 02/03/19 19:40 Hx Obtained From: Patient Hx Last Menstrual Period: 01/01/19 Onset/Duration Of Injury/Symptoms: Days Mechanism Of Injury: No Known Trauma Timing: Constant Onset/Duration: Gradual Onset, Lasting Days, Still Present Severity: Moderate Pain Intensity: 0 Pain Scale Used: 0-10 Numeric Location: Discrete At: - POSTERIOR NECK Character: Sharp Aggravating Factors: Movement Alleviating Factors: Nothing Associated Signs & Symptoms: Positive: Headache. Negative: Swelling, Redness, Bruising, Fever, Weakness, Paresthesia - Allergies/Home Medications Allergies/Adverse Reactions: Allergies Allergy/AdvReac Type Severity Reaction Status Date / Time shellfish derived Allergy Severe Swelling Verified 02/03/19 18:52 Of Face,Lips,& Throat latex Allergy Mild Rash Verified 02/03/19 18:52 sulfamethoxazole Allergy BODY IS Verified 02/03/19 18:52 [From Bactrim] IMMUNE TO IT trimethoprim [From Bactrim] Allergy BODY IS Verified 02/03/19 18:52 IMMUNE TO IT Home Medications: Home Medications Ibuprofen TAB* [Motrin TAB* 600 MG] 1,200 mg PO Q6HR PRN 02/03/19 [History Confirmed 02/03/19] PMH/Surg Hx/FS Hx/Imm Hx Respiratory History: Asthma Other History Of: Hepatitis C Negative For: HIV, Hepatitis B, Anticoagulant Therapy - Surgical History Surgical History: Yes Surgery Procedure, Year, and Place: tubal ligation. extra congenital breast removed. removal of cervical cancer. lumbar fusion (FOR SCOLIOSIS). collapsed lung 2014. 06/2017 FRACTURED T11. [place] teeth extractions. 06/2018 Stent placement for kidney stones. Wounds lanced for MRSA x 20 per pt - Family History Known Family History: Positive: None, Diabetes, Other - She grew up in foster care--has limited information regarding her fmhx Negative: Cardiac Disease, Hypertension - Social History Alcohol Use: None Alcohol Amount: sober since 01/19/14 Substance Use Type: Marijuana, Prescribed Substance Use Comment - Amount & Last Used: Marijuana-states she "smokes marijuana all the time" Smoking Status (MU): Light Every Day Tobacco Smoker Type: Cigarettes Amount Used/How Often: 1/2 ppd 16 years Length of Time of Smoking/Using Tobacco: 15 years Have You Smoked in the Last Year: Yes Household Exposure Type: Cigarettes - Immunization History Most Recent Influenza Vaccination: 2017 Most Recent Tetanus Shot: unkown Most Recent Pneumonia Vaccination: 2016 Review of Systems All Other Systems Reviewed And Are Negative: Yes Constitutional: Positive: Negative Skin: Positive: Negative Respiratory: Positive: Negative Cardiovascular: Positive: Negative Gastrointestinal: Positive: Negative Musculoskeletal: Positive: Arthralgia, Decreased ROM Physical Exam Triage Information Reviewed: Yes Appearance: Well-Appearing, No Pain Distress, Well-Nourished Vital Signs: Initial Vital Signs Temp 97.8 F 02/03/19 18:45 Pulse 62 02/03/19 18:45 Resp 14 02/03/19 18:45 BP 95/51 02/03/19 18:45 Pulse Ox 100 02/03/19 18:45 Vital Signs Reviewed: Yes Eyes: Positive: Conjunctiva Clear ENT: Positive: Hearing grossly normal Neck: Positive: Supple, No Lymphadenopathy, Other: - TENDER OVER C-SPINE SPINOUS PROCESSES - REACTION OUT OF PROPORTION TO EXAM FINDINGS Respiratory: Positive: No respiratory distress, No accessory muscle use Cardiovascular: Positive: Pulses Normal Musculoskeletal: Positive: ROM Limited @ - NECK, Other: - TENDER OVER C-SPINE SPINOUS PROCESSES - REACTION OUT OF PROPORTION TO EXAM FINDINGS Neurological: Positive: Alert Psychological: Positive: Age Appropriate Behavior Skin: Negative: Rashes Diagnostics - Radiology C-SPINE XRAY Radiology Interpretation Completed By: Radiologist Summary of Radiographic Findings: 1. Slight reversal of lordosis centered at C4- C5. 2. Mild degenerative disc change at C5-C6 and to a lesser degree C6-C7. 3. Otherwise negative limited cervical spine. Neck Pain Course/Dx - Course Course Of Treatment: XRAY SHOWS DEGENERATIVE CHANGE. NO FINDINGS TO EXPLAIN ACUTE ONSET OF PAIN. PT TO TAKE OTC ANALGESICS AND F/U PCP. PT CALLED TO NOTIFY OF RESULTS. NO ANSWER. MESSAGE LEFT TO CALL BACK. - Differential Dx/Diagnosis Provider Diagnosis: Acute neck pain Discharge - Sign-Out/Discharge Documenting (check all that apply): Patient Departure All imaging exams completed and their final reports reviewed: Yes - Discharge Plan Condition: Stable Disposition: HOME Patient Education Materials: Acute Neck Pain (ED) Referrals: Ernst Morton MD [Primary Care Provider] - 1 Week Additional Instructions: WE WILL CALL YOU TONIGHT WITH YOUR XRAY RESULTS. TAKE OTC MEDS NEEDED FOR PAIN. GO TO THE ER WITHOUT FAIL IF YOU DEVELOP WORSENING PAIN, NUMBNESS, FEVER, NAUSEA, WEAKNESS OR ANY OTHER CONCERNING SYMPTOMS. - Billing Disposition and Condition Condition: STABLE Disposition: Home
== END 2019-02-03 20:45 | disposition home or self-care (01) ==
LOC: UCEAST 18:33
DX: M54.2 Cervicalgia (principal); Z85.41 Personal history of malignant neoplasm of cervix uteri; F17.210 Nicotine dependence, cigarettes, uncomplicated
CPT/HCPCS: 72040; 99212; G0463

== ENCOUNTER 2019-03-10 15:27 | Emergency (ER) | payer OTHER ==
--- OUTSIDE RECORDS SUMMARY | 2019-03-10 15:42 | XMS REPORT | Continuity of Care Document ---
:1985 Author Organization [facility] Address [address] [place], [place] [id number] Phone Care Team Providers Name Role Phone Sangita DUDLEY, Naye Unavailable Unavailable Allergies, Adverse Reactions, Alerts Substance Reaction Status latex Itching, Hives/Skin Rash Active shellfish derived Anaphylaxis Active Medications Medication Instructions Dosage Effective Status Comments Dates (start - stop) Metrogel Vaginal 1 applicatorful - Active 0.75 % intravag QHS x 5d fluconazole 150 mg 1 po now and 1 po - Active tablet after antibiotic completion (#2) SUBOXONE (unknown Not Available - Active strength) POTASSIUM (unknown Not Available - Active strength) PANTOPRAZOLE SODIUM Not Available - Active (unknown strength) DIAZEPAM (unknown Not Available - Active strength) ADDERALL (unknown Not Available - Active strength) WELLBUTRIN (unknown Not Available - Active strength) GABAPENTIN (unknown Not Available - Active strength) SEROQUEL (unknown Not Available - Active strength) GABLOFEN (unknown Not Available - Active strength) ALBUTEROL INHALER Not Available - Active (unknown strength) NEXIUM (unknown Not Available - Active strength) CLARITIN (unknown Not Available - Active strength) SYNTHROID (unknown Not Available - No Longer strength) Active CYMBALTA (unknown Not Available - No Longer strength) Active AMITRIPTYLINE HCL Not Available - No Longer (unknown strength) Active AMRIX (unknown Not Available - No Longer strength) Active Problems Condition Effective Dates Clinical Status Comments (start - stop) Human immunodeficiency - virus [HIV] counseling Encounter for screening for - human immunodeficiency virus Encntr screen for infections w sexl mode of transmiss Acute vaginitis Candidiasis of vulva and vagina Encounter for screening for oth infec/parastc diseases Pruritus vulvae Noninflammatory disorder of vagina, unspecified Encounter for test, result negative HIV, Screening HIV Counseling Pelvic Pain - NOS STI Screening - BV - Migraine W/ Aura - Chronic Migraine with aura - Active Mapped from [facility] Chronic Conditions table on 04/03/2014 by the ICD9 to SNOMED Bulk Mapping Utility. The mapped diagnosis code was Migraine with aura, 346.00, added by Soledad Riley, with responsible provider Janki Hazel MD. Onset date 03/25/2014. Procedures Procedure Date PREVENTIVE COUNSELING, 8-14 Minutes HIV-1/HIV-2, SINGLE ASSAY N.GONORRHOEAE, DNA, AMP PROB CHYLMD DNA, AMP PROBE TRICHOMONAS VAGIN, DIR PROBE OFFICE/OUTPATIENT VISIT, EST WET SMEAR ASSAY OF BODY FLUID-PH ROUTINE VENIPUNCTURE OTHER Medical Services VAGINITIS RX Contraceptive Fixed Route Operator.Svc. Other Fixed Route Operator.Svc. STI Metronidazole 0.75% vaginal gel FLUCONAZOLE 150 MG #1 Results Test Name Date and Time Measure Units Reference Range Abnormal Flag Status Comments Panel Description: Wet Mount Final Wet Mount 15:10:34 Hyphae/Mago: yesBudding yeast: Final noTrich: noClue cells: yes (>=20%)WBCs: yes (few)Amine/Whiff test: positivepH: 5.0 Panel Description: C trach DNA XXX Ql PCR Final Swab CT - Negative N Final Performed Vaginal 00:00:00 by:
&emsp;&ensp;CDD ([id number])

Panel Description: Amplified GC - Vaginal Final Swab GC - Negative N Final : Vaginal 00:00:00 No

Performed by:
&emsp;&ensp;CDD ([id number])

Advance Directives Directive Yes / No Effective Date File Name No information Encounters Encounter Practice Location Reason(s) Diagnoses Date Provider Providers Description For Visit Copied on Encounter PREVENTIVE [facility] Human [facility]- [facility] [place] a/o Vulvar immunodeficiency 0-201 [place] Provider: 8-14 Minutes Pearl Itching virus [HIV] 9 Sueane. Naye Biswas (chief counselingEncounte [address] [facility], [address]) r for screening [address], [address], [address], [place], [place], [address]. [id number], for infections w [address]. tel:[phone] [place] sexl mode of tel:[phone] tel:[phone] transmissAcute [id number] vaginitisCandidias is of vulva and vaginaEncounter for screening for oth infec/parastc diseasesPruritus vulvaeNoninflammat ory disorder of vagina, unspecified [facility] Encounter for [facility] [place] test, Ave. Provider: [facility] result negative [address] [facility] [place], [address] [place], [address], [place], [place], [address], [id number], [place]. [place] tel:[phone] [facility] W/ Aura [facility] 3- J[facility]i. [facility] [address] [place], [address] [place], [address], [place], [place], [address]. [id number], tel:[phone] tel:[phone] [facility] HIV, ScreeningHIV May-0 [facility] [place] [facility] . [facility] [address] [place] [place], [address] [facility], , [place], [address]. [id number], tel:[phone] tel:[phone] [facility] Pelvic Pain - May-0 [facility] [place] NOSSTI ScreeningBV . [facility] [address] [place] [place], [address] [facility] , [place], [address]. [id number], tel:[phone] tel:[phone] Family History Family Member Diagnosis Age At Onset Maternal grandmother Cancer, breast Grandparents Diabetes mellitus Immunizations Vaccine Date Status Comments MMR administered Source: New Immunization Record Hepatitis B administered Source: New Immunization Record Hepatitis A administered Source: New Immunization Record Payers Payer name Insurance type Covered green party ID Authorization(s) [facility] CI [id number] Social History Type Description Quantity Date Captured Comments Alcohol Use Details Unknown Caffeine Use Details Unknown Tobacco Use Status Smoking Status Current every day smoker Smoking Tobacco Use Cigarette: No Details Available Cigarette: No Details Available Details Sex Female Vital Signs Date / Height Weight BMI Pulse Blood Temperature Respiratory Body Head BMI Pulse Inhaled Time: Rate Pressure Rate Surface Circumference percentile Ox Ox Area No information Chief Complaint And Reason For Visit Most recent encounter only, dated '03/02/2019 14:00'. Vaginal a/o Vulvar Itching (chief complaint) Reason For Referral Reason For Referral No information Plan Of Treatment Date Type Action Status No information History Of Present Illness Encounter Date Complaint History Of Present Illness No information Functional Status Date Functional Assessment No information Medications Administered Medication Instructions Dosage Effective Dates (start - stop) Status Comments No information Instructions Date Instruction Additional Information No information Assessments Type Assessment Date assessment Human immunodeficiency virus [HIV] counseling assessment Encounter for screening for human immunodeficiency virus 2018 assessment Encntr screen for infections w sexl mode of transmiss assessment Acute vaginitis assessment Candidiasis of vulva and vagina assessment Encounter for screening for oth infec/parastc diseases assessment Pruritus vulvae assessment Noninflammatory disorder of vagina, unspecified Goals Health Concern Goal Type Priority Status Date No information Medical Equipment Description Device Rogers Device Identifier Effective Dates (start - stop ) Status No information Mental Status Date Cognitive Assessment No information Health Concerns Observation Date No information Concern Status Date No information
[2019-03-10 17:50] VITALS: BP 111/57
== END 2019-03-10 18:28 | disposition left against medical advice (07) ==
LOC: ED 15:27
DX: R10.30 Lower abdominal pain, unspecified (principal); R11.10 Vomiting, unspecified; Z53.21 Procedure and treatment not carried out due to patient leaving prior to being seen by health care provider

== ENCOUNTER 2019-09-30 01:55 | Emergency (ER) | payer OTHER ==
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
[2019-09-30 03:40] LABS: Urine Appearance Cloudy; Urine Bilirubin Negative (Negative); Urine Blood 1+ (Negative); Urine Color Yellow; Urine Glucose Negative (Negative); Urine Ketones Negative (Negative); Urine Nitrite Negative (Negative); Urine Protein Negative (Negative); Urine Urobilinogen Negative (Negative)
[2019-09-30 03:42] LABS: Urine Bacteria 1+ (Absent); Urine Red Blood Cell 3+(>10/hpf) (Absent); Urine Squamous Epithelial Cell Present (Absent); Urine White Blood Cell Trace(0-5/hpf) (Absent)
[2019-09-30 03:55] LABS: Urine Benzodiazepine Screen None Detected (None Detect); Urine Opiates Screen None Detected (None Detect)
[2019-09-30 04:18] LABS: ABS Basophils 0.1 10^3/ul (0-0.2); ABS Eosinophils 0.3 10^3/ul (0-0.6); ABS Lymphocytes 3.2 10^3/ul (1.0-4.8); ABS Monocytes 0.6 10^3/ul (0-0.8); ABS Neutrophils 3.1 10^3/ul (1.5-7.7); Eosinophil % 3.6 %; Hematocrit 38 % (35-47); Hemoglobin 13.2 g/dL (12.0-16.0); Lymphocyte % 44.1 %; Mean Corpuscular HGB Conc 35 g/dL (31-36); Mean Corpuscular Hemoglobin 33 pg (27-31); Mean Corpuscular Volume 94 fL (80-97); Mean Platelet Volume 7.5 fL (7.4-10.4); Nucleated Red Blood Cells % 0.1; Platelet Count 307 10^3/uL (150-450); Red Blood Count 4.01 10^6 /uL (3.70-4.87); Red Cell Distribution Width 13 % (10-15); White Blood Count 7.3 10^3/uL (3.5-10.8)
[2019-09-30 04:33] LABS: ALT 33 U/L (7-52); AST 24 U/L (13-39); Albumin 4.1 g/dL (3.2-5.2); Albumin/Globulin Ratio 1.4 (1-3); Alkaline Phosphatase 80 U/L (34-104); Anion Gap 7 mmol/L (2-11); BUN/Creatinine Ratio 20.8 (8-20); Blood Urea Nitrogen 15 mg/dL (6-24); CO2 Carbon Dioxide 30 mmol/L (22-32); Calcium 8.9 mg/dL (8.6-10.3); Chloride 100 mmol/L (101-111); EGFR African American 112.9 (>60); EGFR Non-African American 93.3 (>60); Globulin 2.9 g/dL (2-4); Glucose 77 mg/dL (70-100); Potassium 3.6 mmol/L (3.5-5.0); Sodium 137 mmol/L (135-145)
[2019-09-30 04:41] LABS: HCG Pregnancy < 0.60 mIU/mL
[2019-09-30] MEDS ORDERED: NS 0.9% 1000 ML** 1,000 ML IV ONE (04:52)
[2019-09-30 05:01] LABS: Acetaminophen < 15 mcg/mL; Alcohol 10 mg/dL (<10); Salicylate < 2.50 mg/dL (<30)
[2019-09-30 05:16] LABS: TSH (Thyroid Stimulating Horm) 1.59 mcIU/mL (0.34-5.60)
[2019-09-30 05:30] VITALS: BP 135/72
== END 2019-09-30 05:30 | disposition home or self-care (01) ==
LOC: ED 01:55
DX: M79.601 Pain in right arm (principal); F11.10 Opioid abuse, uncomplicated; E07.9 Disorder of thyroid, unspecified; K21.9 Gastro-esophageal reflux disease without esophagitis; F41.9 Anxiety disorder, unspecified; F32.9 Major depressive disorder, single episode, unspecified; F17.210 Nicotine dependence, cigarettes, uncomplicated; Z88.2 Allergy status to sulfonamides; Z85.41 Personal history of malignant neoplasm of cervix uteri; Z88.1 Allergy status to other antibiotic agents; Z91.040 Latex allergy status; Z79.899 Other long term (current) drug therapy; Z98.51 Tubal ligation status
CPT/HCPCS: 36415; 80053; 80307; 80320; 80329; 81003; 81015; 84443; 84702; 85025; 87086; 99283; G0480

== ENCOUNTER 2024-09-19 19:23 | Inpatient (IN) ==
[2024-09-19 20:36] LABS: Urine Appearance Turbid; Urine Bilirubin Negative (Negative); Urine Blood Negative (Negative); Urine Color Yellow; Urine Glucose Negative (Negative); Urine Ketones Trace (Negative); Urine Nitrite 2+ (Negative); Urine Protein Trace (Negative); Urine Specific Gravity 1.026 (1.002-1.030); Urine Urobilinogen Negative (Negative)
[2024-09-19 21:03] LABS: Urine Bacteria 3+ /HPF (Absent); Urine Red Blood Cell 1+(3-5/hpf) /HPF (0-Trace); Urine Squamous Epithelial Cell Present /HPF (Absent); Urine White Blood Cell 3+(>20/hpf) /HPF (0-Trace)
[2024-09-19 21:59] LABS: ABS Eosinophils 0.1 10^3/uL (0.0-0.5); ABS Monocytes 0.9 10^3/uL (0.0-0.9); ABS Neutrophils 16.4 10^3/uL (1.5-7.6); Eosinophil % 0.5 %; Hemoglobin 12.5 g/dL (11.5-14.3); Lymphocyte % 10.1 %; Mean Corpuscular Hemoglobin 29.5 pg (27-33); Mean Corpuscular Hgb Conc 32.8 g/dL (31-36); Mean Platelet Volume 7.6 fL (7.5-11.2); Platelet Count 295 10^3/uL (150-450); Red Blood Count 4.23 10^6/uL (3.63-4.92); Red Cell Distribution Width 14.2 % (12-17); White Blood Count 19.4 10^3/uL (3.8-11.8)
[2024-09-19 22:19] LABS: High Sens Troponin Baseline 3 pg/mL (<15)
[2024-09-19 22:36] LABS: ALT 203 U/L (7-52); AST 155 U/L (13-39); Albumin 4.1 g/dL (3.2-5.2); Albumin/Globulin Ratio 1.5 (1-3); Alkaline Phosphatase 117 U/L (35-149); Anion Gap 5 mmol/L (2-16); Blood Urea Nitrogen 23 mg/dL (6-24); C Reactive Protein 74.47 mg/L (<8.01); CO2 Carbon Dioxide 32 mmol/L (22-32); Calcium 9.2 mg/dL (8.6-10.3); Chloride 99 mmol/L (101-111); Globulin 2.7 g/dL (2-4); Glucose 94 mg/dL (70-100); Magnesium 2.1 mg/dL (1.9-2.7); Potassium 3.7 mmol/L (3.5-5.0); Sodium 136 mmol/L (135-145); Total Bilirubin 0.5 mg/dL (0.2-1.0); Total Protein 6.8 g/dL (6.4-8.9); eGFR CKD-EPI 113.5 (>60)
[2024-09-19 22:42] LABS: HCG Pregnancy < 0.60 mIU/mL
[2024-09-19] MEDS: cefTRIAXone 1 gm/50 mL D5W 1 GM/50 ML BAG IV ONE (22:55)
[2024-09-19 23:06] LABS: Erythrocyte Sed Rate 13 mm/Hr (0-19); HIV 4th Generation Nonreactive (Nonreactive)
[2024-09-19 23:45] LABS: High Sensitivity Troponin 1 Hr 5 pg/mL (<15)
[2024-09-19 23:53] LABS: Hepatitis C Antibody Reactive (Negative)
[2024-09-20] MEDS: Lactated Ringers 1000 ml BAG 1,000 ML IV ONE (01:47)
[2024-09-20] MEDS ORDERED: Morphine 2 MG/ML SYRINGE IV PRN (05:39)
[2024-09-20] MEDS ORDERED: HYDROmorphone 1 MG/1 ML SYRINGE IV SLOW PU PRN (05:42)
[2024-09-20 06:57] LABS: ABS Basophils 0.1 10^3/uL (0.0-0.1); ABS Eosinophils 0.3 10^3/uL (0.0-0.5); ABS Lymphocytes 2.9 10^3/uL (1.0-4.8); ABS Nucleated RBC 0.01 10^3/ul; Eosinophil % 2.5 %; Hematocrit 34.8 % (35-45); Hemoglobin 11.5 g/dL (11.5-14.3); Lymphocyte % 21.7 %; Mean Corpuscular Hemoglobin 29.9 pg (27-33); Mean Corpuscular Hgb Conc 33.2 g/dL (31-36); Mean Corpuscular Volume 90.1 fL (80-97); Mean Platelet Volume 7.7 fL (7.5-11.2); Nucleated Red Blood Cells % 0.1 %/100WBC (0.0-0.8); Platelet Count 264 10^3/uL (150-450); Red Blood Count 3.86 10^6/uL (3.63-4.92); Red Cell Distribution Width 14.2 % (12-17); White Blood Count 13.4 10^3/uL (3.8-11.8)
[2024-09-20 07:08] LABS: Calcium 8.4 mg/dL (8.6-10.3); Creatinine, Serum 0.63 mg/dL (0.51-0.95); Potassium 3.7 mmol/L (3.5-5.0); eGFR CKD-EPI 116.4 (>60)
[2024-09-20] MEDS ORDERED: Ondansetron 4 mg VIAL 2 MG/ML 2 ml VIAL IV PRN (08:01)
[2024-09-20] MEDS ORDERED: Magnesium Hydroxide LIQ 30 ML UDC PO PRN (14:46)
[2024-09-20] MEDS ORDERED: Senna TAB 8.6 mg TAB PO PRN (14:46)
[2024-09-20] MEDS ORDERED: Polyethylene Glycol 3350 17 GM PACKET PO PRN (14:46)
[2024-09-20] MEDS: cefTRIAXone 1 gm/50 mL D5W 1 GM/50 ML BAG IV SCH (21:30)
[2024-09-20] MEDS: Magnesium Hydroxide LIQ 30 ML UDC PO SCH (21:34)
[2024-09-20] MEDS ORDERED: cefTRIAXone 1 gm/50 mL D5W 1 GM/50 ML BAG IV SCH (22:00)
[2024-09-21 06:26] LABS: ABS Basophils 0.1 10^3/uL (0.0-0.1); ABS Eosinophils 0.2 10^3/uL (0.0-0.5); ABS Monocytes 0.6 10^3/uL (0.0-0.9); ABS Neutrophils 3.6 10^3/uL (1.5-7.6); ABS Nucleated RBC 0.01 10^3/ul; Eosinophil % 3.2 %; Hematocrit 38.8 % (35-45); Lymphocyte % 39.4 %; Mean Corpuscular Hemoglobin 30.2 pg (27-33); Mean Corpuscular Hgb Conc 33.5 g/dL (31-36); Mean Corpuscular Volume 90.2 fL (80-97); Mean Platelet Volume 7.9 fL (7.5-11.2); Nucleated Red Blood Cells % 0.1 %/100WBC (0.0-0.8); Platelet Count 301 10^3/uL (150-450); Red Cell Distribution Width 13.7 % (12-17); White Blood Count 7.5 10^3/uL (3.8-11.8)
[2024-09-21 06:38] LABS: Albumin 3.8 g/dL (3.2-5.2); Albumin/Globulin Ratio 1.4 (1-3); Calcium 8.8 mg/dL (8.6-10.3); Creatinine, Serum 0.65 mg/dL (0.51-0.95); Globulin 2.7 g/dL (2-4); Magnesium 1.9 mg/dL (1.9-2.7); Total Bilirubin 0.2 mg/dL (0.2-1.0); Total Protein 6.5 g/dL (6.4-8.9); eGFR CKD-EPI 115.5 (>60)
[2024-09-21] MEDS: Polyethylene Glycol 3350 17 GM PACKET PO SCH (08:55)
[2024-09-21] MEDS ORDERED: COWS Protocol Daily Order Reminder FOLLOW UP SCH ×2 (09:00→16:00)
[2024-09-21 10:59] VITALS: BP 96/63
[2024-09-21] MEDS ORDERED: Senna TAB 8.6 mg TAB PO SCH (21:00)
== END 2024-09-21 12:54 | disposition home or self-care (01) | DRG 690 ==
LOC: ED 19:23 → SUATTDRO 09-20 02:00 → EDHOLD 09-20 02:00 → MERGE 09-20 02:00 → SSU 09-20 14:25
PROVIDERS: ADMIT Internal Medicine; ATTEND Internal Medicine